=== PATIENT | female | born 1950 | race Caucasian/White ===

== ENCOUNTER 2017-07-04 15:52 | Inpatient (IN) | payer OTHER ==
[~2017-07-04] VITALS: Ht 154.9 cm; Wt 46.7 kg
[2017-07-04 15:52] VITALS: BP 203/75
[~2017-07-04 15:52] MED LIST: ALDACTONE25 MG PO; AUGMENTIN 500-1 EACH PO; CARISOPRODOL 3350 MG PO; CARISOPRODOL PO; KEPPRA 500 MG500 MG PO; LOSARTAN POTASS25 MG PO; MECLIZINE 25 MG25 M1; MECLIZINE HCL25 MG PO; MINOCIN100 MG PO; MS CONTIN 100100 MG PO; MS CONTIN15 MG PO; NICOTINE TRANSD21 M1 TRANSDERM; OXYCONTIN10 M1 PO; POTASSIUM20 PO; PREDNISONE 10 M10 MG PO; PROTONIX40 M1 PO; REQUIP 1 MG TABL1 M1 PO; ROXICODONE30 MG PO; VALIUM10 MG PO
[2017-07-04] MEDS ORDERED: CIPRO500 MG PO (16:00)
[2017-07-04 16:55] LABS: HEMATOCRIT 51.6 % (37.0-47.0); HEMOGLOBIN 16.7 gm/dL (12.0-15.0); MCH 30.6 pg (26.0-34.0); MCHC 32.4 g/dL (28.0-37.0); MCV 94.3 fL (80.0-100.0); MPV 9.7 fl. (7.2-11.1); NUCLEATED RBCS 0 /100WBC; PLATELET COUNT* 220 thou/uL (150-400); RBC 5.48 mil/uL (4.20-5.00); RDW-CV 14.5 % (10.5-14.5); WBC 11.7 thou/uL (4.0-11.0)
[2017-07-04 17:03] LABS: ANION GAP 13 mmol/L (7-16); BUN 11 mg/dL (7-18); CALCIUM 9.4 mg/dL (8.5-10.1); CHLORIDE 95 mmol/L (98-107); CO2 27 mmol/L (21-32); CREATININE 0.8 mg/dL (0.6-1.3); GLUCOSE 159 mg/dL (70-99); POTASSIUM 3.1 mmol/L (3.5-5.1); SODIUM 135 mmol/L (136-145)
[2017-07-04 17:13] LABS: ABSOLUTE LYMPHOCYTES 1.8 thou/uL (0.8-5.3); ABSOLUTE MONOCYTES 0.2 thou/uL (0.0-1.2); ABSOLUTE NEUTROPHILS 9.7 thou/uL (1.6-8.1); PLATELET ESTIMATE ADEQUATE
[2017-07-04 17:14] LABS: ALBUMIN 4.1 g/dL (3.4-5.0); ALKALINE PHOSPHATASE 159 U/L (46-116); NT-PRO BRAIN NAT PEPTIDE 5993 pg/mL (<300); SGOT 26 U/L (15-37); SGPT 18 U/L (30-65); TOTAL BILIRUBIN 0.9 mg/dL (<0.1-1.0); TOTAL PROTEIN 7.8 g/dL (6.4-8.2); TROPONIN-I LEVEL <0.06 ng/mL (<0.06)
[2017-07-04 17:18] LABS: URINE BILIRUBIN NEGATIVE (Negative); URINE BLOOD 2+ (Negative); URINE CLARITY CLEAR; URINE COLOR YELLOW; URINE GLUCOSE-RANDOM NEGATIVE (Negative); URINE KETONES NEGATIVE (Negative); URINE LEUKOCYTES-REFLEX NEGATIVE (Negative); URINE NITRITE-REFLEX NEGATIVE (Negative); URINE PROTEIN 2+ (Negative); URINE UROBILINOGEN 0.2 E.U./dl (0.2-1.0)
[2017-07-04 17:27] LABS: SQUAMOUS >10 Many /LPF (0-3)
[2017-07-04 17:28] LABS: BACTERIA-REFLEX 1-9 Few /HPF (None Seen); CRYSTALS None Seen /LPF (None Seen); HYALINE CASTS 0-3 Few /LPF (None Seen); MUCUS None Seen strn/LPF (None Seen); URINE RBC 3-10 Few /HPF (0-2); URINE WBC-REFLEX 0-5 Rare /HPF (0-5)
[2017-07-04] MEDS ORDERED: TOPROL XL25 MG PO (18:01)
[2017-07-04 20:19] LABS: INFLUENZA A ANTIGEN None Detected (None Detect); INFLUENZA B ANTIGEN None Detected (None Detect)
[2017-07-04 21:02] VITALS: BP 188/78; BP 202/80
[2017-07-05 03:38] VITALS: BP 178/85
[2017-07-05 05:18] LABS: HEMATOCRIT 51.7 % (37.0-47.0); HEMOGLOBIN 17.6 gm/dL (12.0-15.0); MCH 29.7 pg (26.0-34.0); MCHC 34.1 g/dL (28.0-37.0); MPV 8.5 fl. (7.2-11.1); RBC 5.94 mil/uL (4.20-5.00); WBC 15.8 thou/uL (4.0-11.0)
[2017-07-05 05:24] LABS: MCV 87.1 fL (80.0-100.0)
[2017-07-05 05:48] LABS: ALBUMIN 4.2 g/dL (3.4-5.0); CALCIUM 9.5 mg/dL (8.5-10.1); TOTAL BILIRUBIN 0.8 mg/dL (<0.1-1.0)
[2017-07-05 05:49] LABS: POTASSIUM 4.8 mmol/L (3.5-5.1)
[2017-07-05 10:30] VITALS: BP 186/84
[2017-07-05 14:44] VITALS: BP 159/83
--- NOTE | 2017-07-05 15:16 | 2DMMODE ---
[place] [address] 2 D/M-MODE ECHOCARDIOGRAM Name: MAULIK HIRSCH Room: [address] ADM IN [facility]#: [id number] Admission: 07/04/17 Attend Phys: Mirella Griffiths Discharge: Date of : 54 Date of Service: 07/05/17 1516 Report #: [id number] THIS REPORT FOR: //name// APPROVED REPORT Study performed: 07/05/2017 11:19:26 EXAM: Comprehensive 2D, Doppler, and color-flow Echocardiogram Patient Location: In-Patient Room #: [facility] Status: routine BSA: 1.48 HR: 84 bpm BP: 178/85 mmHg Rhythm: NSR Other Information Study Quality: Good Indications Congestive Heart Failure COPD Dyspnea Lung CA 2D Dimensions LVEF(%): 26.64 (>50%) IVSd: 12.42 (7-11mm) LVOT Diam: 16.99 (18-24mm) LVDd: 34.15 mm PWd: 10.28 (7-11mm) LVDs: 30.06 (25-40mm) Aortic Root: 27.72 mm Tello's LVEF: 26.64 % Volumes Left Atrial Volume (Systole) LA ESV Index: 15.30 mL/m2 Aortic Valve AoV Peak Robbin.: 1.71 m/s AO Peak Gr.: 11.71 mmHg LVOT Max P.56 mmHg AO Mean Gr.: 5.60 mmHg LVOT Mean P.68 mmHg LVOT Max V: 0.94 m/s AO V2 VTI: 21.51 cm LVOT Mean V: 0.59 m/s MICHAEL (VTI): 1.66 cm2 LVOT V1 VTI: 15.79 [place] [address] 2 D/M-MODE ECHOCARDIOGRAM Name: MAULIK HIRSCH Room: [address] IN ..#: [id number] Admission: 07/04/17 Attend Phys: Mirella Griffiths Discharge: Date of : 54 Date of Service: 07/05/17 1516 Report #: [id number] AI [place]: 3.45 m/s2 AI PHT: 394.57 ms TDI Medial E' Robbin.: 0.04 m/s Lateral E' Robbin.: 0.06 m/s Left Ventricle The left ventricle is normal size. There is normal LV segmental wall motion. There is normal left ventricular wall thickness. Left ventricular systolic function is mildly decreased. LVEF is 45-50%. The left ventricular diastolic function is normal. Right Ventricle The right ventricle is normal size. The right ventricular systolic function is normal. Pacemaker lead is present in the right ventricle. Atria The left atrium size is normal. The right atrium size is normal. Aortic Valve Mild aortic valve sclerosis. Moderate aortic regurgitation. Mild aortic stenosis. Mitral Valve The mitral valve is normal in structure. There is no mitral valve regurgitation noted. No evidence of mitral valve stenosis. Tricuspid Valve The tricuspid valve is normal in structure. There is no tricuspid valve regurgitation noted. Pulmonic Valve The pulmonary valve is normal in structure. There is no pulmonic valvular regurgitation. Great Vessels The aortic root is normal in size. IVC is normal in size and collapses with >50% inspiration Pericardium There is no pericardial effusion. <Conclusion> The left ventricle [place] [address] 2 D/M-MODE ECHOCARDIOGRAM Name: MAULIK HIRSCH Room: [address] IN .R.#: [id number] Admission: 07/04/17 Attend Phys: Mirella Griffiths Discharge: Date of : 54 Date of Service: 07/05/17 1516 Report #: [id number] There is normal left ventricular wall thickness. Left ventricular systolic function is mildly decreased. LVEF is 45-50%. The left ventricular diastolic function is normal. Mild aortic valve sclerosis. Moderate aortic regurgitation. Mild aortic stenosis. Pacemaker lead is present in the right ventricle. <ELECTRONICALLY SIGNED> By: Jorge Mcclelland MD, FACC 07/05/17 1516 1516 1516 Jorge Mcclelland MD, FAC /INF
--- NOTE | 2017-07-05 16:35 | EKG ---
[place] [address] ELECTROCARDIOGRAM REPORT Name: MAULIK HIRSCH Room: [address] ADM IN M.R.#: [id number] Admission: 07/04/17 Attend Phys: Ro Vital Discharge: Date of : 54 Report #: [id number] THIS REPORT FOR: //name// [facility] ED Test Date: 2017-07-04 Test Time: 16:02:44 Pat Name: MAULIK HIRSCH Department: Room: [facility] Gender: F Facility Engineer: UNKNOWN : 1950 Requested By: Nisa Mir Order Number: [id number] MD: Floyd Thomas Measurements Intervals [place] Rate: 73 P: 52 NH: 212 QRS: 55 QRSD: 88 T: 78 QT: 470 QTc: 518 Interpretive Statements Sinus rhythm Borderline prolonged NH interval Consider anterior infarct Nonspecific T abnormalities, lateral leads Prolonged QT interval Baseline wander in lead(s) I,III,aVL,V4 Compared to ECG 03/30/2017 13:35:22 Prolonged QT interval now present Electronically Signed On 07-05-2017 16:34:46 ARSON AND BOMB INVESTIGATOR by Floyd Thomas [email or web address] <ELECTRONICALLY SIGNED> By: Floyd Thomas MD, FAC 07/05/17 1634 1602 1602 Floyd Thomas MD, FAC /EPI
--- NOTE | 2017-07-05 16:46 | EKG ---
[place] [address] ELECTROCARDIOGRAM REPORT Name: MAULIK HIRSCH Room: [address] ADM IN M.R.#: [id number] Admission: 07/04/17 Attend Phys: Ro Vital Discharge: Date of : 54 Report #: [id number] THIS REPORT FOR: //name// [facility] Test Date: 2017-07-05 Test Time: 02:52:46 Pat Name: MAULIK HIRSCH Department: Room: [address] Gender: F Immigration Inspector: Sylvain RODRIGUEZ : 1950 Requested By: Robe Agrawal Order Number: [id number] Sarah MD: Floyd Thomas Measurements Intervals [place] Rate: 84 P: 66 CT: 171 QRS: 68 QRSD: 79 T: 79 QT: 434 QTc: 514 Interpretive Statements Sinus rhythm Biatrial enlargement Consider anterior infarct Prolonged QT interval Electronically Signed On 07-05-2017 16:46:22 JANITOR by Floyd Thomas [email or web address] <ELECTRONICALLY SIGNED> By: Floyd Thomas MD, [facility] 07/05/17 1646 D: 01/251 1 Floyd Thomas MD, FACC /EPI
[2017-07-05 19:28] VITALS: BP 150/78
[2017-07-05 23:32] LABS: BE 2.8 mmol/L (-2 to +3); HCO3 26.8 mmol/L (22.0-26.0); PCO2 39.2 mmHg (35.0-45.0); pH 7.452 (7.340-7.450)
[2017-07-06 00:24] VITALS: BP 145/80
[2017-07-06 04:36] LABS: HEMATOCRIT 50.6 % (37.0-47.0); HEMOGLOBIN 17.4 gm/dL (12.0-15.0); MCH 30.3 pg (26.0-34.0); MCHC 34.5 g/dL (28.0-37.0); MCV 88.1 fL (80.0-100.0); MPV 8.8 fl. (7.2-11.1); RBC 5.75 mil/uL (4.20-5.00); RDW-CV 14.2 % (10.5-14.5)
[2017-07-06 04:42] VITALS: BP 145/77
[2017-07-06 04:43] LABS: BE 1.4 mmol/L (-2 to +3); HCO3 23.8 mmol/L (22.0-26.0); PCO2 32.2 mmHg (35.0-45.0); pH 7.486 (7.340-7.450)
[2017-07-06 04:45] LABS: PO2 55.4 mmHg (75.0-100.0)
[2017-07-06 04:54] LABS: ALBUMIN 3.8 g/dL (3.4-5.0); CALCIUM 9.4 mg/dL (8.5-10.1); CREATININE 1.4 mg/dL (0.6-1.3); POTASSIUM 4.4 mmol/L (3.5-5.1); TOTAL BILIRUBIN 0.7 mg/dL (<0.1-1.0); TOTAL PROTEIN 7.3 g/dL (6.4-8.2)
[2017-07-06 07:37] VITALS: BP 168/82
--- NOTE | 2017-07-06 11:49 | EKG ---
[place] [address] ELECTROCARDIOGRAM REPORT Name: MAULIK HIRSCH Room: [address] ADM IN M.R.#: [id number] Admission: 07/04/17 Attend Phys: Ro Vital Discharge: Date of : 54 Report #: [id number] THIS REPORT FOR: //name// [facility] Test Date: 2017-07-05 Test Time: 23:14:30 Pat Name: MAULIK HORTAETZ Department: Room: [address] Gender: F Agricultural Equipment Sales Manager: Ro LEDEZMA : 1950 Requested By: Mirella Griffiths Order Number: [id number] Reading MD: Floyd Thomas Measurements Intervals [place] Rate: 99 P: 63 MN: 161 QRS: 64 QRSD: 76 T: 42 QT: 365 QTc: 469 Interpretive Statements Sinus rhythm Right atrial enlargement Consider left ventricular hypertrophy Baseline wander in lead(s) V1,V3 Compared to ECG 07/05/2017 02:52:46 Myocardial infarct finding no longer present Prolonged QT interval no longer present Electronically Signed On 07-06-2017 11:49:38 PHARMACY SERVICES DIRECTOR by Floyd Thomas [email or web address] <ELECTRONICALLY SIGNED> By: Floyd Thomas MD, [facility] 07/06/17 1149 2314 2314 Floyd Thomas MD, [facility] /EPI
--- NOTE | 2017-07-06 11:50 | EKG ---
[place] [address] ELECTROCARDIOGRAM REPORT Name: MAULIK HIRSCH Room: [address] ADM IN M.R.#: [id number] Admission: 07/04/17 Attend Phys: Ro Vital Discharge: Date of : 54 Report #: [id number] THIS REPORT FOR: //name// [facility] Test Date: 2017-07-05 Test Time: 23:17:00 Pat Name: MAULIK HORTAETZ Department: Room: [address] Gender: F Leather Softener: Ro LEDEZMA : 1950 Requested By: Robe Agrawal Order Number: [id number] Sarah MD: Floyd Thomas Measurements Intervals [place] Rate: 94 P: 60 [place]: 160 QRS: 59 QRSD: 77 T: 63 QT: 376 QTc: 471 Interpretive Statements Sinus rhythm Right atrial enlargement Consider left ventricular hypertrophy Compared to ECG 07/05/2017 02:52:46 Prolonged QT interval no longer present Electronically Signed On 07-06-2017 11:50:13 HEAT AND FROST INSULATOR by Floyd Thomas [email or web address] <ELECTRONICALLY SIGNED> By: Floyd Thomas MD, FACNaseem 07/06/17 1150 2317 2317 Floyd Thomas MD, [facility] /EPI
--- NOTE | 2017-07-06 11:57 | EKG ---
[place] [address] ELECTROCARDIOGRAM REPORT Name: MAULIK HIRSCH Room: [address] ADM IN M.R.#: [id number] Admission: 07/04/17 Attend Phys: Ro Vital Discharge: Date of : 54 Report #: [id number] THIS REPORT FOR: //name// [facility] Test Date: 2017-07-06 Test Time: 08:17:49 Pat Name: MAULIK HIRSCH Department: Room: [address] Gender: F Structural Welder: : 1950 Requested By: Robe Agrawal Order Number: [id number] Sarah MD: Floyd Thomas Measurements Intervals [place] Rate: 96 P: 58 OR: 187 QRS: 53 QRSD: 79 T: 44 QT: 386 QTc: 488 Interpretive Statements Sinus rhythm Right atrial enlargement Consider left ventricular hypertrophy Borderline prolonged QT interval Compared to ECG 07/05/2017 02:52:46 no change Electronically Signed On 07-06-2017 11:56:56 FLOAT NURSE by Floyd Thomas [email or web address] <ELECTRONICALLY SIGNED> By: Floyd Thomas MD, [facility] 07/06/17 1156 6 6 Floyd Thomas MD, [facility] /EPI
[2017-07-06 12:30] VITALS: BP 160/79
[2017-07-06 14:57] VITALS: BP 161/78
[2017-07-06 16:00] VITALS: BP 171/85
[2017-07-07] VITALS: BP 146/59
[2017-07-07 04:00] VITALS: BP 154/88
[2017-07-07 04:57] LABS: BE -0.6 mmol/L (-2 to +3); HCO3 22.8 mmol/L (22.0-26.0); PCO2 34.7 mmHg (35.0-45.0); pH 7.436 (7.340-7.450)
[2017-07-07 05:58] LABS: HEMATOCRIT 49.1 % (37.0-47.0); HEMOGLOBIN 16.4 gm/dL (12.0-15.0); MCH 30.3 pg (26.0-34.0); MCHC 33.5 g/dL (28.0-37.0); MCV 90.6 fL (80.0-100.0); MPV 9.1 fl. (7.2-11.1); NUCLEATED RBCS 0 /100WBC; PLATELET COUNT* 229 thou/uL (150-400); RBC 5.42 mil/uL (4.20-5.00); RDW-CV 14.1 % (10.5-14.5); WBC 18.5 thou/uL (4.0-11.0)
[2017-07-07 06:18] LABS: ALBUMIN 3.8 g/dL (3.4-5.0); CALCIUM 9.6 mg/dL (8.5-10.1); CREATININE 1.5 mg/dL (0.6-1.3); POTASSIUM 4.8 mmol/L (3.5-5.1); TOTAL BILIRUBIN 0.5 mg/dL (<0.1-1.0); TOTAL PROTEIN 6.9 g/dL (6.4-8.2)
[2017-07-07 06:26] LABS: ABSOLUTE LYMPHOCYTES 0.7 thou/uL (0.8-5.3); ABSOLUTE MONOCYTES 0.7 thou/uL (0.0-1.2); ANISOCYTOSIS 1+; PLATELET ESTIMATE ADEQUATE; POIKILOCYTOSIS 1+
[2017-07-07 08:00] VITALS: BP 177/80
[2017-07-07 12:36] VITALS: BP 170/86
--- NOTE | 2017-07-07 16:38 | CON ---
[address] [address] CONSULTATION Name: MAULIK HIRSCH Room: [address] IN M.R.#: [id number] Admission: 07/04/17 Attend Phys: Ro Vital Discharge: Date of : 54 Report #: [id number] THIS REPORT FOR: //name// CC: Parker Griffiths DATE OF SERVICE: 07/06/2017 TYPE OF REPORT: Cardiology consultation. PRIMARY CARE PHYSICIAN: Dr. Parker Grajeda. HISTORY OF PRESENT ILLNESS: The patient is a 67-year-old white female who I was asked to see in the hospital today after she complained of being short of breath. The patient has an extensive past medical history. She previously was diagnosed with long QT syndrome. She apparently had normal coronary arteries in the past. She appears followed by Dr. Conteh. She had a history of syncope and eventually underwent implantation of defibrillator by Dr. Hernandez at [facility]. The patient recently has been followed by my partner, Dr. Buchanan. She was last admitted here to [place] in March 2017 at which time she had fallen and had an episode of atrial fibrillation. She had fallen with an elevated troponin. Because of her negative Cardiolite last year, it was decided not to proceed with cardiac catheterization. The patient was seen by my partner, Dr. Buchanan in April 2017. The patient was doing well at that time. The patient presented to the Emergency Room 2 days ago with shortness of breath and weakness. She denied any recent chest pain, cough, fever or increasing edema. She denied any palpitations. She was admitted to a monitored bed. I was asked to see her for further evaluation and treatment. PAST MEDICAL HISTORY: Otherwise significant for cholecystectomy, hysterectomy, 5 back surgeries and shoulder surgery. She had previous resection of the lung cancer using CyberKnife at [facility]. She has a history of hypertension. CURRENT MEDICATIONS: Consists of metoprolol and Requip. She is no longer on losartan. ALLERGIES: She has a previous intolerance to METHADONE. FAMILY HISTORY: She is adopted. SOCIAL HISTORY: She is . She and her live in [place]. 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 Smokes half pack of cigarettes a day. No alcohol abuse. REVIEW OF SYSTEMS: She has had no history of the stomach [place] [address] CONSULTATION Name: MAULIK HIRSCH Room: [address]#: [id number] Admission: 07/04/17 Attend Phys: Ro Vital Discharge: Date of : 54 Report #: [id number] had a TIA in the past affecting her speech. She has COPD, uses inhaler. No history of liver disease, kidney disease or chronic skin condition. PHYSICAL EXAMINATION: GENERAL: Revealed a frail appearing white female lying in bed. She appeared in no acute distress. VITAL SIGNS: She has had a blood pressure of 160/80, pulse 90 and she is afebrile. HEENT: She was anicteric. Conjunctivae pink. Mucous members are dry. NECK: Veins do not appear distended. CHEST: No coarse breath sounds. CARDIAC: Regular rate and rhythm. ABDOMEN: Soft. EXTREMITIES: Had trace edema. Dorsalis pedis pulse 1+ bilaterally. SKIN: Cool and dry. NEUROLOGICAL: Nonfocal. PSYCHIATRIC: Mood was depressed. RADIOLOGICAL DATA: Her ECG on admission 2 days ago showed a sinus rhythm with no ST or T-wave change. Her workup, her last echocardiogram, which was done 2 days ago showed ejection fraction 45%. Mild aortic sclerosis, moderate aortic insufficiency and mild aortic stenosis. Her chest x-ray done on admission 2 days ago showed scarring, no pulmonary edema. VQ scan of the lungs showed low probability of pulmonary embolus. LABORATORY DATA: Her lab work consisted of sodium 133, BUN 35 and creatinine 1.4. Alkaline phosphatase 159. Troponin 0.06. Her white blood cell count 15.0 and hemoglobin 17.4. IMPRESSION AND RECOMMENDATIONS: 1. Cardiomyopathy. The patient has been on a beta edwina. I would consider resuming losartan. 2. History of long QT syndrome. The patient has a defibrillator in place. 3. Tobacco abuse. 4. History of lung cancer. 5. Chronic back pain. 6. History of atrial fibrillation, currently in sinus rhythm. 7. Chronic obstructive pulmonary disease. 8. Sleep apnea. <ELECTRONICALLY SIGNED> By: Floyd Thomas MD, [facility] 07/07/17 1638 1737 [id number] Thomas MD, FAC /nt
[2017-07-07 16:59] VITALS: BP 181/87
[2017-07-07 20:00] VITALS: BP 161/83
[2017-07-08] VITALS: BP 152/80
[2017-07-08 04:17] VITALS: BP 160/88
[2017-07-08 04:43] LABS: HEMOGLOBIN 16.1 gm/dL (12.0-15.0); MCH 30.2 pg (26.0-34.0); MCHC 33.6 g/dL (28.0-37.0); MCV 89.8 fL (80.0-100.0); MPV 9.4 fl. (7.2-11.1); RBC 5.34 mil/uL (4.20-5.00); RDW-CV 13.9 % (10.5-14.5); WBC 11.2 thou/uL (4.0-11.0)
[2017-07-08 05:11] LABS: CALCIUM 9.3 mg/dL (8.5-10.1); CREATININE 1.5 mg/dL (0.6-1.3); MAGNESIUM 1.8 mg/dL (1.8-2.4); POTASSIUM 4.4 mmol/L (3.5-5.1)
[2017-07-08 07:15] VITALS: BP 186/87
[2017-07-08 16:20] VITALS: BP 204/84
[2017-07-08 16:38] VITALS: BP 200/89
[2017-07-08 19:39] VITALS: BP 108/89
[2017-07-09 00:02] VITALS: BP 139/71
[2017-07-09 04:12] VITALS: BP 148/62
[2017-07-09 07:50] VITALS: BP 144/84
[2017-07-09 14:57] VITALS: BP 144/88
[2017-07-10] VITALS: BP 184/82
[2017-07-10 03:45] VITALS: BP 163/90
[2017-07-10 04:30] LABS: CALCIUM 8.9 mg/dL (8.5-10.1); CREATININE 1.2 mg/dL (0.6-1.3); POTASSIUM 4.4 mmol/L (3.5-5.1)
[2017-07-10 07:45] VITALS: BP 166/82
--- NOTE | 2017-07-10 09:31 | CON ---
[address] [address] CONSULTATION Name: MAULIK HIRSCH Room: [address] IN M.R.#: [id number] Admission: 07/04/17 Attend Phys: Ro Vital Discharge: Date of : 54 Report #: [id number] THIS REPORT FOR: //name// CC: Parker Griffiths REASON FOR CONSULTATION: Acute worsening respiratory failure. HISTORY OF PRESENT ILLNESS: The patient is a 67-year-old female patient who was admitted to the hospital on 07/02/2017 with chief complaint of shortness of breath of 3 weeks' duration. Apparently, her O2 saturation initially was on room air 94% and she was treated for pneumonia prior to hospitalization. She has history of lung cancer and COPD and no cardiac disease. She was admitted to the hospital due to COPD exacerbation and pneumonia with antibiotics; however, over the course of hospitalization, her oxygen needs have increased only, until last night she was on 15 liters oxygen. I did discuss with RN. The patient did not tolerate BiPAP and thus she was given Valium last night. When I saw her this morning, she is on 15 liters oxygen, although she looks comfortable, speaks in full sentences, but overall she looks chronically ill. Her ejection fraction during hospitalization was 45%, although there was no diastolic dysfunction. She had multiple sets of ABGs, the last sets of ABG, 7. and that was done on 60% FiO2 on the BiPAP. Her creatinine is 1.5. She reported that she feels better than last night. She has a cough, dry, not producing any sputum. She had a CT scan that will be discussed below. Also, she has history of lung cancer. ALLERGIES: ASPIRIN, METHADONE and SUMATRIPTAN. HOME MEDICATIONS PRIOR TO HOSPITALIZATION: ReQuip, oxycodone, diazepam, potassium supplement, ciprofloxacin, metoprolol. PAST MEDICAL HISTORY: COPD, previous history of pneumonia, CHF with cardiomyopathy, ejection fraction of 45%, aortic insufficiency. She has history of cardiac arrhythmia with atrial fibrillation, history of hypokalemia. She is status post pacemaker, defibrillator placement, history of tachycardia, history of syncopal episodes, fall and multiple CVAs in addition to lung cancer and seizures. PAST SURGICAL HISTORY: Includes tonsillectomy, laminectomy, C-sections, cholecystectomy and shoulder surgery. FAMILY HISTORY: Reviewed with the patient, noncontributory. SOCIAL HISTORY: Does not drink alcohol excessively, does not abuse drugs. However, [place] [address] CONSULTATION Name: MAULIK HIRSCH Room: [address]#: [id number] Admission: 07/04/17 Attend Phys: Ro Vital Discharge: Date of : 54 Report #: [id number] REVIEW OF SYSTEMS: She denied fever, chills, change in appetite. Overall her appetite is poor. She denied dysphagia, nasal congestion or discharge. She reports history of shortness of breath with occasional sputum production, although it is white in color. She denied any pain, change in bowel habits. The rest of the review system was negative. PHYSICAL EXAMINATION: VITAL SIGNS: She was on 15 liters oxygen with blood pressure 140/62, pulse rate of 100, temperature 36.4. GENERAL: Thin lady, awake, alert, on nonrebreather. She speaks in full sentences. HEENT: Head normocephalic, atraumatic. Pupils equal, reactive to light. Oral cavity: Dry mucous membrane. NECK: Supple. CHEST: Diminished air movement bilaterally, prolonged expiratory phase with occasional wheezes, some crackles at the left lung base. HEART: S1, S2. No murmur, no gallop. ABDOMEN: Benign, soft, lax, nontender, positive bowel sounds. EXTREMITIES: Lower extremity: No edema, no calf tenderness. MUSCULOSKELETAL: Normal on inspection. No deformities. LYMPHATICS: No palpable lymph nodes. PSYCHIATRIC: Mood and affect slightly anxious, seems to have good insight and judgment. Her chest x-ray initially showed left lower lobe infiltrates. She had a CT scan of the chest without contrast done last night that demonstrated atelectasis and pneumonia had resolved, but she has oval mass which is consistent with history of lung cancer she had in the past. Her ABGs as mentioned above, her creatinine is 1.5 with a , sodium 133. White blood cell count 11.2, hemoglobin 16.1, platelet of 198. Other CBC and BMP in the chart also was reviewed. Her influenza A and B screen were negative. 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 Calvert at [facility]. IMPRESSION: 1. Acute hypoxic respiratory failure. 2. Chronic obstructive pulmonary disease exacerbation. 3. Pneumonia. 4. History of lung cancer. The patient's initial V/Q scan upon hospitalization was low probability for PE. However, with the sudden deterioration in her oxygen, I would like to revisit evaluation. We will do Doppler ultrasound of lower extremities and we will do V/Q scan again. I agree with resuming IV steroids. I agree with the diuresis; [place] [address] CONSULTATION Name: MAULIK HIRSCH Room: [address] IN M.R.#: [id number] Admission: 07/04/17 Attend Phys: Ro Vital Discharge: Date of : 54 Report #: [id number] however, she must wean from further diuresis given her ejection fraction. She will be on scheduled nebulization treatments. Unfortunately, the patient does not tolerate BiPAP. She remains full code. Condition guarded, prognosis guarded. We will follow along with you. Thank you for the consult. <ELECTRONICALLY SIGNED> By: Cordell Reyes MD 07/10/17 0931 0949 1922Ddon Reyes MD /matt
[2017-07-10 12:07] VITALS: BP 134/78
[2017-07-10 17:00] VITALS: BP 152/77
[2017-07-10 19:48] VITALS: BP 144/75
[2017-07-11] VITALS: BP 154/80
[2017-07-11 03:45] VITALS: BP 129/73
[2017-07-11 05:00] LABS: HEMATOCRIT 47.7 % (37.0-47.0); HEMOGLOBIN 16.4 gm/dL (12.0-15.0); MCH 30.7 pg (26.0-34.0); MCHC 34.4 g/dL (28.0-37.0); MCV 89.2 fL (80.0-100.0); MPV 10.2 fl. (7.2-11.1); RBC 5.35 mil/uL (4.20-5.00); RDW-CV 13.6 % (10.5-14.5)
[2017-07-11 05:29] LABS: CALCIUM 8.4 mg/dL (8.5-10.1); CREATININE 1.2 mg/dL (0.6-1.3); MAGNESIUM 2.1 mg/dL (1.8-2.4); POTASSIUM 3.9 mmol/L (3.5-5.1)
[2017-07-11 08:40] VITALS: BP 150/77
[2017-07-11 12:45] LABS: APTT 25.1 Seconds (25.0-31.3); INR 1.2; PROTIME 11.3 Seconds (9.20-11.50)
[2017-07-11 16:00] VITALS: BP 139/80
[2017-07-11 20:30] VITALS: BP 141/84
[2017-07-11 23:37] VITALS: BP 151/77
[2017-07-12 04:00] VITALS: BP 167/86
[2017-07-12 05:00] LABS: HEMATOCRIT 49.8 % (37.0-47.0); HEMOGLOBIN 17.2 gm/dL (12.0-15.0); MCH 30.4 pg (26.0-34.0); MCHC 34.6 g/dL (28.0-37.0); MCV 87.8 fL (80.0-100.0); MPV 9.5 fl. (7.2-11.1); NUCLEATED RBCS 0 /100WBC; PLATELET COUNT* 124 thou/uL (150-400); RBC 5.68 mil/uL (4.20-5.00); WBC 18.6 thou/uL (4.0-11.0)
[2017-07-12 05:09] LABS: ALBUMIN 3.3 g/dL (3.4-5.0); CALCIUM 8.6 mg/dL (8.5-10.1); POTASSIUM 3.9 mmol/L (3.5-5.1); TOTAL BILIRUBIN 1.1 mg/dL (<0.1-1.0); TOTAL PROTEIN 5.9 g/dL (6.4-8.2)
[2017-07-12 06:11] LABS: ABSOLUTE LYMPHOCYTES 0.7 thou/uL (0.8-5.3); ABSOLUTE MONOCYTES 1.7 thou/uL (0.0-1.2); ABSOLUTE NEUTROPHILS 16.2 thou/uL (1.6-8.1); PLATELET ESTIMATE ADEQUATE
[2017-07-12 08:00] VITALS: BP 152/92
[2017-07-12 09:30] VITALS: BP 152/92
[2017-07-12 12:24] LABS: BE -0.7 mmol/L (-2 to +3); HCO3 21.2 mmol/L (22.0-26.0); PCO2 29.1 mmHg (35.0-45.0); PO2 60.3 mmHg (75.0-100.0)
[2017-07-12] MEDS ORDERED: DUONEB 2.5-0.5 M3 ML INH (13:51)
[2017-07-12] MEDS ORDERED: SPIRONOLACTONE25 M1 PO (13:53)
[2017-07-12] MEDS ORDERED: COZAAR 50 MG TA50 M2 PO (13:55)
[2017-07-12] MEDS ORDERED: PROTONIX40 M2 PO (13:57)
[2017-07-12] MEDS ORDERED: ULTRAM 50MG TAB50 MG PO (13:58)
[2017-07-12] MEDS ORDERED: PREDNISONE 10 M10 M1 PO (14:06)
[2017-07-12] MEDS ORDERED: TYLENOL325 MG PO (14:09)
== END 2017-07-12 14:44 | disposition home health service (06) | DRG 871 ==
LOC: M.ERS 15:52 → M.3W 19:41 → M.TBA-ER 19:41 → M.3W 21:26
PROVIDERS: Family Medicine; Internal Medicine; Nurse Practitioner Family; ADMIT Internal Medicine
DX: A41.9 Sepsis, unspecified organism (principal); I50.43 Acute on chronic combined systolic (congestive) and diastolic (congestive) heart failure; J96.01 Acute respiratory failure with hypoxia; J15.9 Unspecified bacterial pneumonia; G93.41 Metabolic encephalopathy; J44.1 Chronic obstructive pulmonary disease with (acute) exacerbation; C34.90 Malignant neoplasm of unspecified part of unspecified bronchus or lung; I42.9 Cardiomyopathy, unspecified; J44.0 Chronic obstructive pulmonary disease with (acute) lower respiratory infection; N39.0 Urinary tract infection, site not specified; E87.3 Alkalosis; N17.9 Acute kidney failure, unspecified; M79.606 Pain in leg, unspecified; F41.9 Anxiety disorder, unspecified; E87.8 Other disorders of electrolyte and fluid balance, not elsewhere classified; E87.6 Hypokalemia; N18.9 Chronic kidney disease, unspecified; F17.210 Nicotine dependence, cigarettes, uncomplicated; G89.29 Other chronic pain; M54.9 Dorsalgia, unspecified; I48.91 Unspecified atrial fibrillation; G47.30 Sleep apnea, unspecified; Z90.49 Acquired absence of other specified parts of digestive tract; Z95.0 Presence of cardiac pacemaker; Z79.899 Other long term (current) drug therapy; Z79.82 Long term (current) use of aspirin; Z90.710 Acquired absence of both cervix and uterus; Z88.6 Allergy status to analgesic agent; Z88.8 Allergy status to other drugs, medicaments and biological substances

== ENCOUNTER 2017-07-16 13:03 | Inpatient (IN) | payer OTHER ==
[~2017-07-16] VITALS: Ht 152.4 cm; Wt 47.6 kg
[2017-07-16] VITALS (12 sets, daily range): BP systolic 129–218; BP diastolic 67–89
[~2017-07-16 13:03] MED LIST changes: +CIPRO500 MG PO; +COZAAR 50 MG TA50 M2 PO; +DUONEB 2.5-0.5 M3 ML INH; +PREDNISONE 10 M10 M1 PO; +PROTONIX40 M2 PO; +SPIRONOLACTONE25 M1 PO; +TOPROL XL25 MG PO; +TYLENOL325 MG PO; +ULTRAM 50MG TAB50 MG PO
[2017-07-16 13:40] LABS: HCO3 16.7 mmol/L (22.0-26.0); PCO2 24.6 mmHg (35.0-45.0); PO2 67.3 mmHg (75.0-100.0); pH 7.449 (7.340-7.450)
--- NOTE | 2017-07-16 14:00 | NUR ---
RT IJ CENTAL LINE PLACED BY DR KENNEY, VARIFIED BY X-RAY.
[2017-07-16 14:11] LABS: HEMATOCRIT 47.9 % (37.0-47.0); MCH 30.2 pg (26.0-34.0); MCHC 33.3 g/dL (28.0-37.0); MCV 90.7 fL (80.0-100.0); MPV 9.9 fl. (7.2-11.1); NUCLEATED RBCS 0 /100WBC; PLATELET COUNT* 190 thou/uL (150-400); RBC 5.28 mil/uL (4.20-5.00); WBC 21.8 thou/uL (4.0-11.0)
--- NOTE | 2017-07-16 14:12 | NUR ---
SUCESSFUL INTUBATION 7.0 TUBE, 22 AT THE GUM. POSITIVE COLOR CHANGE. OG PLACED AND SECURED. BOTH VERIFIED BY XRAY.
[2017-07-16 14:20] LABS: ANION GAP 8 mmol/L (7-16); BUN 30 mg/dL (7-18); CALCIUM 8.7 mg/dL (8.5-10.1); CHLORIDE 100 mmol/L (98-107); CO2 26 mmol/L (21-32); CREATININE 1.1 mg/dL (0.6-1.3); GLUCOSE 181 mg/dL (70-99); POTASSIUM 4.4 mmol/L (3.5-5.1); SODIUM 134 mmol/L (136-145)
[2017-07-16 14:31] LABS: ALBUMIN 3.1 g/dL (3.4-5.0); ALKALINE PHOSPHATASE 112 U/L (46-116); NT-PRO BRAIN NAT PEPTIDE 628 pg/mL (<300); SGOT 16 U/L (15-37); SGPT 16 U/L (30-65); TOTAL BILIRUBIN 0.6 mg/dL (<0.1-1.0); TOTAL PROTEIN 6.5 g/dL (6.4-8.2); TROPONIN-I LEVEL <0.06 ng/mL (<0.06)
[2017-07-16 14:37] LABS: ABSOLUTE MONOCYTES 0.4 thou/uL (0.0-1.2); ABSOLUTE NEUTROPHILS 19.4 thou/uL (1.6-8.1); ATYPICAL LYMPHS 1 %; PLATELET ESTIMATE ADEQUATE
[2017-07-16 14:44] LABS: ACETAMINOPHEN < 2 ug/mL (10-30)
[2017-07-16 14:48] LABS: URINE BILIRUBIN NEGATIVE (Negative); URINE BLOOD TRACE (Negative); URINE CLARITY CLEAR; URINE COLOR YELLOW; URINE GLUCOSE-RANDOM NEGATIVE (Negative); URINE KETONES NEGATIVE (Negative); URINE LEUKOCYTES NEGATIVE (Negative); URINE NITRITE NEGATIVE (Negative); URINE PROTEIN TRACE (Negative); URINE UROBILINOGEN 0.2 E.U./dl (0.2-1.0)
[2017-07-16 15:02] LABS: AMP/METHAMP Negative (Negative); BARBITURATES Negative (Negative); BENZODIAZEPINES POSITIVE (Negative); COCAINE Negative (Negative); METHADONE Negative (Negative); OPIATES POSITIVE (Negative); PCP Negative (Negative); THC Negative (Negative)
[2017-07-16 15:06] LABS: INFLUENZA A ANTIGEN None Detected (None Detect); INFLUENZA B ANTIGEN None Detected (None Detect)
--- NOTE | 2017-07-16 18:25 | NUR ---
PATIENT ADMITTED TO THE ICU AT 1505. ELECTIVE INTUBATION IN THE ER, PATIENT IS CLAUSTROPHOBIC AND REQUESTED TO BE INTUBATED OVER WEARING A BIPAP. UPON ARRIVING ON VENT (AC 16, FIO2 30%, TV 450, PEEP 5) SEDATED ON PROPOFOL AT 10 MCG/KG/MIN. FIO2 TITRATED UP BY RT THIS SHIFT TO 50% R/T DESATURATION. TRACING NSR TO SINUS TACH. HYPERTENSIVE, BUT BLOOD PRESSURES HAD IMPROVED. HYPOTHERMIC UPON ARRIVING, 4 WARM BLANKETS ON PATIENT TO INCREASE TEMP TO 97.2. PROPOFOL INCREASED TO 20 MCG/KG/MIN (5.4 ML/HR) AFTER PATIENT STARTED TO WAKE UP AFTER INTUBATION MEDICATIONS WORE OFF. BILATERAL SOFT WRIST RESTRAINTS IN PLACE. (ALIYAH) CALLED AND UPDATED ON PATIENT'S STATUS, STATED HE IS NOT FEELING WELL AT HOME AND UNABLE TO COME TO HOSPITAL. STATED HE WOULD CONTINUE TO CALL AND CHECK IN ON PATIENT. PATIENT WAS RECENTLY HERE FOR PNEUMONIA WITH NONCOMPLIANT BEHAVIORS AND REFUSED SNF PLACEMENT. WEARS O2 AT HOME, UNKNOWN AMOUNT. CONCERNS THAT PATIENT HAS BEEN OVERUSING BENZOS AND NARCOTICS AT HOME ON PREVIOUS ADMISSIONS. GOALS ARE TO MAINTAIN AIRWAY, IMPROVE OXYGENATION, MAINTAIN HEMODNYNAMIC STABILITY AND VITAL SIGNS, AND MAINTAIN SKIN INTEGRITY.
--- NOTE | 2017-07-16 23:06 | NUR ---
ASSUMED CARE OF PT @ 1900; RECEIVED REPORT PER GERALD HINOJOSA; SEE REASSESSMENT FOR CHARTING; PT RECEIVED SEDATION VACATION; RESPONDED TO YES OR NO QUESTIONS WITH NODS; FOLLOWED COMMANDS; MONITOR TRACING SR; PT REPOSTIONED, WILL CONTINUE TO MONITOR FREQUENTLY.
[2017-07-17] VITALS (18 sets, daily range): BP systolic 96–153; BP diastolic 53–77
[2017-07-17 05:27] LABS: HEMATOCRIT 39.1 % (37.0-47.0); MCH 30.9 pg (26.0-34.0); MCHC 34.8 g/dL (28.0-37.0); MCV 88.8 fL (80.0-100.0); MPV 9.9 fl. (7.2-11.1); RBC 4.4 mil/uL (4.20-5.00); RDW-CV 14.2 % (10.5-14.5); WBC 15.7 thou/uL (4.0-11.0)
[2017-07-17 06:09] LABS: HEMOGLOBIN 13.6 gm/dL (12.0-15.0)
[2017-07-17 06:10] LABS: ALBUMIN 2.3 g/dL (3.4-5.0); ALKALINE PHOSPHATASE 87 U/L (46-116); ANION GAP 10 mmol/L (7-16); BUN 21 mg/dL (7-18); CALCIUM 7.9 mg/dL (8.5-10.1); CHLORIDE 105 mmol/L (98-107); CO2 22 mmol/L (21-32); CREATININE 0.9 mg/dL (0.6-1.3); GLUCOSE 122 mg/dL (70-99); MAGNESIUM 1.7 mg/dL (1.8-2.4); POTASSIUM 4.3 mmol/L (3.5-5.1); SGOT 13 U/L (15-37); SGPT 12 U/L (30-65); SODIUM 137 mmol/L (136-145); TOTAL BILIRUBIN 0.5 mg/dL (<0.1-1.0); TOTAL PROTEIN 5.1 g/dL (6.4-8.2); TROPONIN-I LEVEL <0.06 ng/mL (<0.06)
--- NOTE | 2017-07-17 06:12 | NUR ---
PT PROGRESSING TOWARDS GOAL, GOAL TO MAINTAIN O2 SAT COMPLETED AND DECREASED FIO2 ON VENT TO 40%; ORAL CARE AND TURN COMPLETED Q 2 HOURS; GOAL TO MAINTAIN SBP LESS THAN 150 COMPLETED; PT CURRENTLY RESTING ON VENT, EYES CLOSED; WILL RESPOND TO VOICE AND FOLLOW COMMANDS; CALL LIGHT WITH IN REACH; WILL CONTINUE TO IMPLEMENT PLAN OF CARE.
--- NOTE | 2017-07-17 09:20 | NUR ---
RECEIVED REPORT FROM GERALD GRECO. ASSESSMENT CHARTED. AFEBRILE. INTUBATED AMD SEDATED. TTT TOMORROW AM. PROPOFOL GTT AND NS INFUSING.
--- NOTE | 2017-07-17 11:49 | EKG ---
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: Eric ALFRED : 1950 Requested By: Andreina Holt Order Number: [id number] Reading MD: Pako Inman Measurements Intervals [place] Rate: 104 P: 57 DE: 175 QRS: 41 QRSD: 79 T: 92 QT: 339 QTc: 446 Interpretive Statements Sinus tachycardia Right atrial enlargement RSR' in V1 or V2, probably normal variant Consider left ventricular hypertrophy Probable inferior infarct, old Lateral leads are also involved Baseline wander in lead(s) V6 Compared to ECG 07/06/2017 08:17:49 RSR' in V1 or V2 now present Myocardial infarct finding now present Sinus rhythm no longer present Electronically Signed On 07-17-2017 11:49:10 COLLECTION SUPPORT SPECIALIST by Pako Inman [email or web address] <ELECTRONICALLY SIGNED> By: Pako Inman MD, [facility] 07/17/17 1149 133 1332 Pako Inman MD, [facility] /EPI
[2017-07-17 15:34] LABS: HCO3 17.2 mmol/L (22.0-26.0); PCO2 30.7 mmHg (35.0-45.0); pH 7.365 (7.340-7.450)
[2017-07-17 15:37] LABS: PO2 126.2 mmHg (75.0-100.0)
[2017-07-18] VITALS (14 sets, daily range): BP systolic 107–159; BP diastolic 57–79
--- NOTE | 2017-07-18 10:42 | NUR ---
Nutrition: Recommend TF of Fibersource HN @ 40mL/hr with current propofol rate. Once Propofol is tapered, please increase TF to goal rate of 50mL/hr. See RD Assessment form for details.
--- NOTE | 2017-07-18 11:05 | NUR ---
RECEIVED REFERRAL FOR PALLIATIVE CARE CONSULT. NO FAMILY HERE AT THIS TIME. WILL CONTACT FAMILY AND DISCUSS PLAN OF CARE WITH THEM.
--- NOTE | 2017-07-18 11:35 | CON ---
[address] [address] CONSULTATION Name: MAULIK HIRSCH Room: [address] IN .R.#: [id number] Admission: 07/16/17 Attend Phys: Costa Holland, Discharge: Date of : 54 Report #: [id number] THIS REPORT FOR: //name// CC: KARON physician/PCP Costa Holland DATE OF SERVICE: 07/18/2017 ATTENDING PHYSICIAN: Costa Holland MD REASON FOR CONSULTATION: Respiratory failure complicated by sepsis and pneumonitis. HISTORY OF PRESENT ILLNESS: Chart reviewed, patient examined. This 67-year-old female with a known history of chronic obstructive pulmonary disease, has cardiomyopathy as well who was readmitted to the hospital with progressive weakness, had fallen. She is normally on supplemental oxygen at home due to her chronic obstructive pulmonary disease. She did require emergent intubation. She is seen in the Intensive Care Unit and has been started on broad spectrum empiric antibiotics, specifically levofloxacin, piperacillin/tazobactam, vancomycin. She has had some low-grade temperature elevations. ALLERGIES: ASPIRIN, METHADONE, SUMATRIPTAN. CURRENT MEDICATIONS: Include metoprolol, spironolactone, levetiracetam, pantoprazole, lactobacillus, methylprednisolone, levofloxacin, Zosyn, vancomycin, ipratropium and albuterol inhaler. PAST MEDICAL HISTORY: As above noted, O2 requiring chronic obstructive pulmonary disease, history of cardiomyopathy with congestive heart failure, aortic insufficiency, history of cardiac dysrhythmias, atrial fibrillation, prolonged QT of Torsades, has a pacemaker and defibrillator, history of lung cancer stage 1, early remission; multiple strokes, seizures, history of urinary tract infections, previous laminectomy, spinal fusion, tonsillectomy, cholecystectomy, shoulder surgery, . SOCIAL HISTORY: Former smoker. No illicit drug use or tobacco. FAMILY HISTORY: Noncontributory. REVIEW OF SYSTEMS: Unobtainable. PHYSICAL EXAMINATION: GENERAL: She appears chronically ill certainly given her age, undernourished. VITAL SIGNS: Temperature 99, pulse 93, respirations 16, blood pressure 110/71. SKIN: Warm, [place] [id number] CONSULTATION Name: RAYMON HIRSCHTED Lane Room: [address]#: [id number] Admission: 07/16/17 Attend Phys: Costa Holland, Discharge: Date of : 54 Report #: [id number] HEENT: ET tube in place. She does have an abrasion over her nose. NECK: Supple. LUNGS: Scattered coarse breath sounds. HEART: Borderline tachycardic. I do not appreciate any murmur. ABDOMEN: Soft, mildly distended. There are no peritoneal signs. GENITOURINARY: Deferred. RECTAL: Deferred. LABORATORY DATA: Most recent chest x-ray showed left lower lobe infiltrate. Blood cultures sterile thus far from the 3rd. TSH is 0.447. Prealbumin of 22.2. C. diff was negative. Screening MRSA PCR was negative. Random cortisol was 6.9. ABG from yesterday morning, pH 7.365, pCO2 of 30.7, pO2 of 126.2, was on FiO2 of 40%. Sputum culture shows upper respiratory tract karen. Legionella urinary antigen was nonreactive as well as pneumococcal urinary antigen. ASSESSMENT: Pneumonitis. This is a readmission. Clearly, she has got some severe underlying medical issues including O2 requiring chronic obstructive pulmonary disease. I am sure it is a multifactorial etiology as to her clinical deterioration. We will continue broad spectrum empiric antimicrobial therapy at this point. It is difficult to imagine she will have a speedy response. Continue efforts to wean as allowed. Try to optimize her nutritional status. <ELECTRONICALLY SIGNED> By: Michoacano Noble MD 07/18/17 1135 [id number] Noble MD /nt
[2017-07-18 11:57] LABS: BE -7.5 mmol/L (-2 to +3); HCO3 16.3 mmol/L (22.0-26.0); PCO2 28.7 mmHg (35.0-45.0); PO2 109.4 mmHg (75.0-100.0); pH 7.372 (7.340-7.450)
--- NOTE | 2017-07-18 12:44 | NUR ---
PATIENT EXTUBATED SELF WANTS TO GET OUT OF HERE. TOLERATING 5L NC. VS WNL. HAS BEEN CALLED WILL TAKE SHOWER AND COME IN TO SEE PATIENT.
[2017-07-18 13:41] LABS: HCO3 16.5 mmol/L (22.0-26.0); PCO2 27.9 mmHg (35.0-45.0); PO2 109.5 mmHg (75.0-100.0); pH 7.389 (7.340-7.450)
--- NOTE | 2017-07-18 16:13 | NUR ---
PATIENT TOLERATING 5L FIO2 APPEARS TO BE CONFUSED AT TIMES IN TO SEE PATIENT. PATIENT TAKING PO WELL ADVANCING DIET TO HEEART HEALTHY. PROGRESSING.
[2017-07-19] VITALS (11 sets, daily range): BP systolic 131–164; BP diastolic 54–74
[2017-07-19 04:08] LABS: BE -4.4 mmol/L (-2 to +3); HCO3 19.6 mmol/L (22.0-26.0); PCO2 32.9 mmHg (35.0-45.0); pH 7.393 (7.340-7.450)
[2017-07-19 04:10] LABS: PO2 132.7 mmHg (75.0-100.0)
[2017-07-19 06:03] LABS: HEMATOCRIT 36.4 % (37.0-47.0); HEMOGLOBIN 12.3 gm/dL (12.0-15.0); MCH 30.4 pg (26.0-34.0); MCHC 33.8 g/dL (28.0-37.0); MCV 90.1 fL (80.0-100.0); MPV 10.6 fl. (7.2-11.1); RBC 4.04 mil/uL (4.20-5.00); RDW-CV 13.9 % (10.5-14.5)
[2017-07-19 06:20] LABS: CALCIUM 8.1 mg/dL (8.5-10.1); CREATININE 0.9 mg/dL (0.6-1.3); MAGNESIUM 1.6 mg/dL (1.8-2.4); POTASSIUM 3.1 mmol/L (3.5-5.1)
--- NOTE | 2017-07-19 08:06 | CON ---
[address] [address] CONSULTATION Name: MAULIK HIRSCH Room: [address] IN M.R.#: [id number] Admission: 07/16/17 Attend Phys: Costa Holland, Discharge: Date of : 54 Report #: [id number] THIS REPORT FOR: //name// CC: KARON physician/PCP Costa Holland REASON FOR CONSULTATION: Acute respiratory failure. HISTORY OF PRESENT ILLNESS: The patient is a 67-year-old female patient who is known to have history of COPD, and actually, she was recently hospitalized at this facility. She has a previous history of lung cancer, status post treatment. She was in this facility not long time ago, and she was discharged, but she was not on oxygen. She presented to the ER with shortness of breath and weakness. She feels tired and fatigued. She could not even get out of bed according to her. Apparently, they tried BiPAP, she was very intolerant to it, and she asked to be intubated. She ended up intubated because of her BiPAP intolerance and secondary to respiratory distress. Per the admitting history, she had no nausea, no vomiting, no diarrhea. She is known to have history of COPD and smoking. When I saw her this morning, she was intubated. She was on propofol, but actually she was responsive, following commands. She was on 40% FIO2, seems to be tolerating the vent very well at this point. During the last hospitalization, she was requiring significant amount of oxygen up to 15 liters with a Ventimask; however, she did not tolerate BiPAP. She improved with steroids and antibiotic in addition to diuresis and she was released. ALLERGIES: ASPIRIN, METHADONE, SUMATRIPTAN. PAST MEDICAL HISTORY: COPD, previous history of pneumonia. CHF with cardiomyopathy, ejection fraction 45%. Aortic insufficiency, history of cardiac arrhythmia with atrial fibrillation. She is status post pacemaker defibrillator placement. She has history of tachycardia, syncopal episodes, multiple CVAs with lung cancer and seizures. PAST SURGICAL HISTORY: Tonsillectomy, laminectomy, , cholecystectomy, shoulder surgery. FAMILY HISTORY: At this point not obtainable. SOCIAL HISTORY: No history of alcohol abuse or drug abuse. She is a smoker. REVIEW OF SYSTEMS: Limited. She is intubated at this point, could not participate in the history. PHYSICAL EXAMINATION: VITAL SIGNS: On examination, she is on the vent, O2 saturation 98%, blood pressure 110/55, respiratory rate 17, temperature 37.1. GENERAL: Thin lady, awake, responsive, even though on sedation, [place] [address] CONSULTATION Name: MAULIK HIRSCH Room: [address] IN M.R.#: [id number] Admission: 07/16/17 Attend Phys: Costa Holland, Discharge: Date of : 54 Report #: [id number] commands. HEAD: Normocephalic, atraumatic. EYES: Pupils equal, reactive to light. ENT: External ear looks healthy and normal. Nasal cavity patent passages. Oral cavity: Moist mucous membrane. ET tube in place. NECK: Supple. No palpable lymph nodes. No palpable thyroid. Trachea central. CHEST: Diminished air movement bilaterally, some crackles at the left lung base. I did not hear wheezes. HEART: S1, S2, no murmur. CHEST: Normal inspection. ABDOMEN: Benign, soft, lax, nontender, positive bowel sounds. No masses felt. LOWER EXTREMITIES: No edema, no calf tenderness. No deformities on extremities inspection. PSYCHIATRIC: Mood and affect could not be evaluated. NEUROLOGIC: Although she is on sedation, but she moves her extremities and follow commands. LABORATORY STUDIES: Her ABGs upon hospitalization on 2 liters by nasal cannula 7.44 and that was done on 2 liter oxygen. Her creatinine is 0.9, potassium 4.3, sodium 137. BNP was slightly elevated at 628. Her chest x-ray showed left basilar atelectasis. No definite infiltrate, with ET tube in good position. IMPRESSION: 1. Acute respiratory failure. 2. Respiratory distress. 3. Chronic obstructive pulmonary disease exacerbation. 4. History of lung cancer. 5. Cardiomyopathy, ejection fraction 45%. 6. History of arrhythmia. The patient looks really comfortable today on the vent. I did not hear active wheezes. Chest x-ray relatively clear compared to her baseline other than left lower base atelectasis. I would continue the antibiotics at this point, scheduled nebulization treatments. I am going to add steroids to her medication regimen. We will do a repeat chest x-ray in the morning. I will consider weaning trial. For now, continue the current plan of sedation. Thank you for the consult. <ELECTRONICALLY SIGNED> By: Nghia Dempsey MD 07/19/17 0806 [id number] Reyes MD /nt
--- NOTE | 2017-07-19 10:00 | NUR ---
PATIENT IS M/S TELE
--- NOTE | 2017-07-19 14:28 | NUR ---
SW met with pt, pt , and pt step dtr to complete assessment and discuss safe dc planning. Pt said that if pt was able to "get up and walk a little" that they would want to take pt home with HH. Pt said that he was able to use the gait belt and help pt around the house. Nurse discussed with SW that pt family considering SNF at dc if needed and SW discussed SNF placement options with family. Pt/family want a facility as close to [place] as possible. SW to continue to follow to assist with safe dc planning.
--- NOTE | 2017-07-19 17:19 | NUR ---
PATIENT TRANSFER FROM ICU, REPORT TAKEN FROM YUNG. PATIENT IS A&OX4, ON 2LO2 VIA NC. IV RIGHT SUBCLAVIAN TRIPPLE LUMEN, FLUSHES AND DRAWS WELL. UP WITH MAX ASSISTX1 WITH WALKER AND GAITBELT. NO C/O PAIN/N/V. NO OTHER CONCERNS AT THIS TIME. SPOKE WITH PATIENT AND FAMILY IN REGARDS TO SHORT TERM CARE FOR REHAB VS OUTPATIENT HOME HEALTH. FAMILY AND PATIENT SAID THEY WOULD KEEP AN OPEN MIND FOR SHORT TERM CARE. APPROPRAITE AND COOPORATIVE WITH CARE.
[2017-07-19 17:55] LABS: MAGNESIUM 1.5 mg/dL (1.8-2.4)
[2017-07-20] VITALS (8 sets, daily range): BP systolic 133–160; BP diastolic 67–79
--- NOTE | 2017-07-20 01:17 | NUR ---
PT HAD RUN OF VTACH AND HR STAYING ELEVATED. DR NOTIFIED THAT PT HAS NOT HAD HER METPROLOL TODAY, MED REORDERED AND GIVEN AT THIS TIME. WILL CONTINUE TO MONITOR.
[2017-07-20 02:07] LABS: ADENOVIRUS Negative (Negative); INFLUENZA A Negative (Negative); INFLUENZA B Negative (Negative); METAPNEUMOVIRUS Negative (Negative); PARAINFLUENZA 1 Negative (Negative); PARAINFLUENZA 2 Negative (Negative); PARAINFLUENZA 3 Negative (Negative); RHINOVIRUS Negative (Negative); RSV A Negative (Negative); RSV B Negative (Negative)
--- NOTE | 2017-07-20 06:51 | NUR ---
PT REMAINS TACHY IN LOW 100'S WITH OCC PVC BUT NO MORE VTACH. ROME DRAINGING YELLOW URINE. R SUBCLAVIAN SL, ABX GIVEN ORDERED. ROOM AIR SAT 100% AT HS. NO LABS THIS MORNING. TRAMADOL GIVEN X1 FOR CO PAIN WITH GOOD RESULT. SOMA GIVEN X1 WITH GOOD RESULT. VSS. AFEBRILE. ABLE TO USE CALL LITE AND MAKE NEEDS KNOWN. BED ALARM ON FOR SAFETY. AO, DROWSY AT TIMES, WEAK, FATIGUED.
--- NOTE | 2017-07-20 16:16 | NUR ---
SW faxed SNF referral to [facility] for pt possible dc soon. SW to continue to follow to assist with safe dc planning.
--- NOTE | 2017-07-20 19:56 | NUR ---
PATIENT A&OX4, FORGETFUL AT TIMES. ON ROOM AIR, RIGHT SUBCLAVIAN TRIPPLE LUMEN FLUSHES AND DRAWS WELL. UP WITH MAX ASSISTX1 WITH GAITBELT AND WALKER, UNSTEADY ON FEET. ROME CATHETER IN PLACE, ABLE TO CALL FOR ASSISTANCE WHEN NEEDING TO HAVE BM. PATIENT HAD BMX3 SOFT, WITH NO ODOR. C/O BACK PAIN, MINIMAL TO PARTIAL RELIEF STATED BY PATIENT. PATIENT FOUND TO BE RESTING QUIETLY IN ROOM AFTER PAIN MEDICATIONS GIVEN. NO OTHER CONCERNS AT THIS TIME. APPROPRIATE AND COOPORATIVE WITH CARE.
[2017-07-21 04:00] VITALS: BP 160/73
--- NOTE | 2017-07-21 05:35 | NUR ---
PT IS ABLE TO COMMUNICATE HER NEEDS TO STAFF WITH ONLY VERY MINOR DIFFICULTY; SHE HAS BEEN DROWSEY AT TIMES AND REQUIRED SOME EXTRA TIME TO ANSWER. CURRENT PAIN MEDICATION REGIMEN HAS BEEN ADEQUATE FOR CONTROLLING HER PAIN UP TO THIS TIME. WILD IS PATENT. PT HAS BEEN UP MULTIPLE TIMES TO HAVE BMs; SPECIMEN SENT TO LAB TO CHECK FOR C.DIFF; RESULTS PENDING.
[2017-07-21 07:30] VITALS: BP 150/73
[2017-07-21 11:08] VITALS: BP 152/85
[2017-07-21 16:41] VITALS: BP 145/81
--- NOTE | 2017-07-21 16:56 | NUR ---
SW received call from [facility] admissions stating that they will not have a bed available until Tuesday. SW met with pt and pt family to discuss other possible options for SNFs. Pt does not want [facility] and pt did not want to have to drive very far. Pt wondered about [facility] but they are not in network with pt insurance. SW sent referral to [facility] and if pt is to dc tomorrow, facility will need SW to call in the morning because beds are limited. SW to continue to follow to assist with finalizing safe dc plan.
[2017-07-21 20:15] VITALS: BP 132/76
--- NOTE | 2017-07-21 21:09 | NUR ---
ASSUMED CARES OF PT AT 0700. PT IN BED ASLEEP, BED IN LOW AND LOCKED POSITION, BED ALARM ON FOR FALL PRECAUTIONS, CALL BUTTON AND PERSONAL ITEMS IN PT REACH. PT REFUSES SCD'S THIS SHIFT. PT A&O X2/DROWSEY. SINUS RHYTHM/PACEMAKER ON MONITOR. VSS ON RA, LUNGS SOUND WET, IV LASIX ORDERED. PT AFEBRILE, CHRONIC PAIN IN BACK, LEGS, FEET, PO PAIN MED SOMEWHAT EFFECTIVE TO TOLERABLE. PT REPORTS MULTIPLE SOFT BM'S, PT ON CONTACT PRECAUTIONS PENDING C-DIFF TEST. ROME CATH PATENT WITH CLEAR YELLOW URINE. HOURLY ROUNDS AND Q2 TURNS COMPLETED. PT WEAK, OCC. CONFUSED WHILE DROWSEY, UP WITH ONE TO TWO ASSIST TO BSC. RIGHT IJ TRIPLE LUMEN IV PATENT, NO S/S OF INFECTION/SALINE LOCKED. MG REPLACED/EFFECTIVE/WNL. SPOKE WITH REGARDING PT BNP RISING. PT CONSULTED FOR REHAB/, PULMONOLGY, ONCOLOGY, ID/DR. DIALLO. PT OFTEN HAS DIFFICULTY GETTING SENTENCES OUT TO UNDERSTAND, MUMBLES. SKIN INTACT, SCATTERED BRUISING/SCARS, REDNESS ON BOTTOM REQUIRES Q2 TURNS. REPORT TO DRILL OPERATOR PNEUMATIC FOR CONTINUED CARES.
[2017-07-22 00:28] VITALS: BP 164/87
--- NOTE | 2017-07-22 01:40 | NUR ---
DR NOTIFIED THAT PT STATES MEDS ARE NOT WORKING TO CONTROL PAIN. EDUCATION TO PT REGARDING NARCOTIC AND SUPPRESSION OF RESPIRATIONS-PT STATES SHE UNDERSTANDS THAT BUT REQUESTING DR BE NOTIFIED FOR ONE TIME DOSE. ORDERS RECEIVED FOR NO MORPHINE TONIGHT AND PT CAN DISCUSS WITH IN THE MORNING.
--- NOTE | 2017-07-22 05:21 | NUR ---
PT AWAKE OFF AND ON UNTIL ABOUT 0230, COMPLAINING OF PAIN- PO MED, SOMA AND VALIUM GIVEN ORDERED WITH BRIEF RELIEF. PT REQUESTED DR BE CALLED TO ASK FOR ONE TIME DOSE OF MORPHINE-DR NOTIFIED AND NO NEW ORDERS RECEIVED. PT RELUCTANTLY TAKING TRAMADOL AFTER THAT AND HAS BEEN SLEEPING WELL SINCE THAT TIME. ROOM AIR SAT 93-96%. TELE ST. ROME DRAINING YELLOW URINE. RTLIJ SL, SOLUMEDROL GIVEN ORDERED, PO ABX GIVEN ORDERED. CDIFF NEGATIVE AND ISOLATON DISCONTINUED. NO BM THIS SHIFT. NO LABS THIS MORNING. ABLE TO USE CALL LITE AND MAKE NEEDS KNOWN. BED ALARM ON FOR SAFETY.
[2017-07-22 07:56] VITALS: BP 180/88
--- NOTE | 2017-07-22 11:08 | NUR ---
Possibility for pt to dc tomorrow, Sunday 07/23. HOLLI called Ratna with admissions at [facility] who accepted referral and said that pt could admit to SNF at [facility] on Tuesday. HOLLI called and spoke with pt who to inform of pt acceptance to SNF [facility]. SW to follow to fax final order and med list to [facility] at [phone].
[2017-07-22 11:29] VITALS: BP 154/81
[2017-07-22 16:03] VITALS: BP 169/81
--- NOTE | 2017-07-22 18:40 | NUR ---
RESUMED CARE THIS AM. REDNESS AND SWELLING TO BILAT LE DECREASED GREATLY. 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 DENIES PAIN, DOES NOT LIKE HAVING AN IV IN PLACE. 20G TO RFA INFILTRATED, NEW IV 20G TO LEFT FA X 1 AMTTEMPT SUCCESSFUL. AMY IV ABT WITHOUT ADR. CONT TO BE INCONTINENT OF BLADDER, HAS HAD 3 BM THIS SHIFT. CALL LIGHT IN REACH, CONT POC.
--- NOTE | 2017-07-22 19:00 | NUR ---
RESUMED CARE THIS AM. UP FOR MEALS, CONT WITH INDWELLING CATHETER FOR IMMOBILITY. CONT ON RA, VSS. DISCHARGE PLAN IS FOR SKILLLED STAY, THEN HOME WITH HOME HEALTH. PATIENT DID TOLERATE 100' AMBULATION ON RA. CONT POC, CALL LIGHT IN REACH.
[2017-07-23 00:22] VITALS: BP 152/80
[2017-07-23 03:32] VITALS: BP 142/75
--- NOTE | 2017-07-23 05:48 | NUR ---
PATIENT ALERT AND ORIENTED. VITALS STABLE. RA. WEARS 2L AT HS. COILED COIL INSPECTOR READS SINUS RHYTHM. REPOSITONED EVERY TWO HOURS. ROME TO DEPENDENT DRAINAGE. HOURLY ROUNDS. BED ALARM IN USE. NURSING WILL CONTINUE TO MONITOR.
[2017-07-23 08:00] VITALS: BP 145/82
--- NOTE | 2017-07-23 10:09 | NUR ---
ROME CATHETER REMOVED PT DOES NOT MEET REQUIREMENT FOR ROME. PT ASKS FOR BEDPAN. PT ENCOURAGED TO USE BSC. PT UP TO BSC WITH 1 ASSIST. ENCOURAGED PT TO GET UP IN CHAIR. PT REFUSES. PT STATES "JUST GET ME IN BED AND TURN THE LIGHTS OUT AND LEAVE ME ALONE SO I CAN SLEEP". DISCUSSED WITH PT INCREASING ACTIVITY TODAY. PT STATES "I WILL THINK ABOUT IT"
[2017-07-23 12:12] VITALS: BP 142/83
--- NOTE | 2017-07-23 12:52 | NUR ---
PT LOW O2 SATS DROP TO 80S WITH AMBULATION AND WHEN O2 REMOVED. 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 PT STATES THERE IS NO OTHER WAY HOME. PT REFUSES HOME O2 AT THIS TIME. DR FLORES NOTIFIED. PT IS AGREEABLE TO ARRANGING HOME O2 THROUGH HER PCP
--- NOTE | 2017-07-23 13:40 | NUR ---
RESUMED CARE, REPORT RECEIVED, ANTICIPATE DISCHARGE TO [facility] THIS AFTERNOON FOR THERAPY SERVICES. PATIENT A/O X 4, CHRONIC PAIN TO LOWER BACK MANAGED WITH ORAL MEDICATION. LAST BOWEL MOVEMENT TODAY, TOLERATED 50% OF LUNCH, 92% ON RA, NO DISTRESS NOTED, DISCHARGE PLANS CONFIRMED WITH PATIENT. ANTICIPATE TRANSPORT AROUND 3 PM.
--- NOTE | 2017-07-23 14:04 | NUR ---
Pt discharging to [facility] snf today. Faxed dc orders. Chart copied. Nurse report number provided, . Updated Pt's , he will meet Pt at [facility]. [facility] will provide dc transportation, Pt to dc at 3:30pm.
[2017-07-23] MEDS ORDERED: ALBUTEROL SULFATE PO (15:04)
[2017-07-23] MEDS ORDERED: AUGMENTIN 875-1 EACH PO (15:07)
[2017-07-23] MEDS ORDERED: FLORANEX TABLE1 EACH PO (15:13)
[2017-07-23] MEDS ORDERED: SINGULAIR 10 MG10 M1 PO (15:22)
--- NOTE | 2017-07-23 17:44 | NUR ---
PATIENT DISCHARGED TO [facility], PERSONAL EFFECTS GATHERED AND ACCOUNTED FOR, IN COMPANY OF . REPORT CALLED TO [facility], TLC TO RIJ REMOVED WITHOUT INCIDENT, PRESSURE APPLIED, DRESSED, NO BLEEDING NOTED. TRANSPORTED VIA WHEELCHAIR VAN IN STABLE CONDITION.
--- NOTE | 2017-08-03 13:45 | CON ---
[address] [address] CONSULTATION Name: MAULIK HIRSCH Room: [address]R.#: [id number] Admission: 07/16/17 Attend Phys: Costa Holland, Discharge: 07/23/17 Date of : 54 Report #: [id number] THIS REPORT FOR: //name// CC: Parker Holland DATE OF SERVICE: 07/20/2017 REASON FOR CONSULTATION: Evaluation and recommendations regarding post-acute rehabilitation in a female admitted to [facility] with respiratory failure with multiple medical comorbidities. Previous level of function was modified independent to independent with activities of daily living. Current level of function is minimum assistance depending on therapy, activity and time of day. She was admitted with acute respiratory failure, metabolic encephalopathy, COPD exacerbation, ongoing tobacco use, respiratory alkalosis, Gram-positive pneumonia and damdi-bx-tmuaawz systolic congestive heart failure. She does also have a history of seizures and aortic insufficiency. She has been working with therapy. With occupational therapy she is currently dependent. There is no data on physical therapy or speech and language pathology. ALLERGIES: To METHADONE, ASPIRIN, SUMATRIPTAN. Vital signs and laboratories are reviewed and are available in the MAR. PAST MEDICAL HISTORY: COPD, pneumonia, CHF, cardiomyopathy, elevated troponin, aortic insufficiency, pacemaker, tachycardia, syncopal episodes, fall, facial contusion, laceration of neck, lung cancer, multiple CVAs, seizures, history of UTIs. FAMILY HISTORY: Nothing significant. SOCIAL HISTORY: No tobacco, alcohol or illicit drug use. REVIEW OF SYSTEMS: Fourteen-point review of systems is done and is negative except as mentioned in HPI, specifically no fever, chest pain, shortness of breath, abdominal pain or distention. PHYSICAL EXAMINATION: GENERAL: Alert, oriented, in no apparent distress. VITAL SIGNS: Reviewed and are stable. HEENT: Atraumatic, normocephalic. Pupils equal, round, reactive. ABDOMEN: Soft, nontender, nondistended. NEUROLOGIC: Cranial nerves 2-12 are grossly intact. No focal neuro deficits. 5/5 strength in bilateral upper and lower extremities. ASSESSMENT: [place] [address] CONSULTATION Name: MAULIK HIRSCH Room: [address]#: [id number] Admission: 07/16/17 Attend Phys: Costa Holland, Discharge: 07/23/17 Date of : 54 Report #: [id number] 1. Acute respiratory failure. 2. Metabolic encephalopathy. 3. Chronic obstructive pulmonary disease exacerbation. 4. Ongoing tobacco use. 5. Respiratory alkalosis. ____ offered but not needed at this time. PLAN: Recommend skilled level of care for ongoing subacute rehabilitation as I do not feel that at this time she would be able to tolerate 3 hours of therapy upon rehabilitation given her level of dependence with her therapy at this time. <ELECTRONICALLY SIGNED> By: Amber Harris DO 08/03/17 1345 [id number] nan Thakur
--- NOTE | 2017-08-22 01:13 | CON ---
[address] [address] CONSULTATION Name: MAULIK HIRSCH Room: [address]R.#: [id number] Admission: 07/16/17 Attend Phys: Costa Holland, Discharge: 07/23/17 Date of : 54 Report #: [id number] THIS REPORT FOR: //name// CC: KARON physician/PCP Costa Holland DATE OF SERVICE: 07/17/2017 CONSULTATION: Infectious diseases. HISTORY OF PRESENT ILLNESS: Mrs Hirsch is a 67-year-old white female who was admitted to [facility] on 07/16/2017 complaining of weakness, nausea, diarrhea. The patient has been hospitalized from 07/04/2017 to 07/12/2017 at [facility]. At that time, the patient was diagnosed as having an exacerbation of COPD complicated by congestive heart failure. It was recommended that she be discharged to rehab to regain her strength, but family refused the suggestion and wanted to take her home. At home, the patient became progressively weak to the point where she would not eat, drink, or get out of bed. She therefore returns to [facility] via ER and was admitted. Infectious Disease consultation was requested because of concerns with possible sepsis. PAST MEDICAL HISTORY: Significant for atrial fibrillation, congestive heart failure, aortic insufficiency, COPD, squamous cell carcinoma of the lung diagnosed 2 years ago, seizures, stroke, chronic back pain. PAST SURGICAL HISTORY: Includes implantation of a defibrillator pacemaker, laminectomy, section, cholecystectomy and shoulder surgery. ALLERGIES: The patient's chart notes allergy to ASPIRIN, METHADONE AND IMITREX. MEDICATION RECONCILIATION: The patient is on the following medications: Lactobacillus acidophilus 1 tablet 3 times a day, methylprednisolone 40 mg IV every 8 hours, levofloxacin 500 mg IV daily, propofol drip, vancomycin 750 mg b.i.d., hydralazine 10 mg q. 6 hours p.r.n., enoxaparin 40 mg at bedtime, Zosyn 4.5 grams every 6 hours, DuoNeb aerosol. FAMILY HISTORY: Noncontributory. SOCIAL HISTORY: The patient is . She was a cigarette smoker in the past, but quit. No history of alcohol nor drugs. REVIEW OF SYSTEMS AND HOSPITAL COURSE: The patient was initially seen in the Emergency Room with a blood pressure of 218/89, this then came down to 160/78. The patient became more lethargic and there was concerned about her ability to protect her airway. She was sedated and then intubated. She was transferred to the [place] [id number] CONSULTATION Name: MAULIK HIRSCH Room: [address] M.R.#: [id number] Admission: 07/16/17 Attend Phys: Costa Holland, Discharge: 07/23/17 Date of : 54 Report #: [id number] PHYSICAL EXAMINATION: GENERAL: On examination, the patient appears chronically and acutely ill, sedated, but comfortable, not in any distress. VITAL SIGNS: Show maximum temperature of 99.2, she was 96.0 in the ER. SKIN: The patient's skin is very sallow and wrinkled. She looked older than her stated age. ENT: Shows tubes in the proper position. NECK: Supple. HEART: Sounds S1, S2. CHEST: Breath sounds are diminished. ABDOMEN: Belly is thin, soft, nontender. EXTREMITIES: Wasted, but unremarkable. Pacemaker is apparent in the left chest. The left foot is slightly red and swollen. It is unclear if this is an early cellulitis or possibly a previous trauma or possibly a fall prior to becoming bedfast. LABORATORY STUDIES: White count was 21,000 initially, now down to 15.7, hemoglobin was 16 and down to 13.6 with hydration, hematocrit 39%, platelets 149,000. Electrolytes, BUN and creatinine were normal, glucose 122. Liver function tests were normal. Albumin low at 2.3. B-type natriuretic peptide is 628. The influenza antigen is negative. Sputum Gram stain after intubation shows mixed karen. Cultures are pending. Blood cultures x 2 are negative. Chest x-ray shows left lower lobe atelectasis, not much different from when the patient left the hospital last week. ASSESSMENT AND PLAN: In summary, the patient with underlying heart and lung disease, refused rehab and at home develops nausea, diarrhea, profound weakness and depressed mental status. In the Emergency Room, there was concerned about her ability to protect her airway and she is intubated. Septic parameters include hypothermia and then slightly febrile, leukocytosis and there is concern there may be an early cellulitis on her left foot. At this time, the patient is on broad spectrum antibiotic therapy with vancomycin, Zosyn and Levaquin. I will await results of blood and sputum cultures. It may be worthwhile to culture for respiratory viruses and legionella as well. We can check urinary antigens for pneumococcus and legionella. The patient does take prednisone for her chronic obstructive pulmonary disease and may require stress dose steroids. She is currently receiving the Solu-Medrol 40 mg every 8 hours. At this point it is unclear the patient is all that different than when she left the hospital. She has minimal fever. Her white count is almost back to normal. Her x-ray is not that different. It may be worthwhile to address with the family if they want to clarify their goals for therapy in this patient with apparently chronic obstructive pulmonary disease, heart [place] [address] CONSULTATION Name: MAULIK HIRSCH Room: [address]R.#: [id number] Admission: 07/16/17 Attend Phys: Costa Holland, Discharge: 07/23/17 Date of : 54 Report #: [id number] For now, she is a full code and is back in the ICU on a ventilator after being home for approximately 5 days. This by itself is a rather ominous prognostic indicator. For now, we will continue broad spectrum antibiotic therapy until the patient stabilizes and cultures come back. I appreciate the opportunity to offer infectious disease input into her care. Dr. Noble will return on Tuesday for further followup. <ELECTRONICALLY SIGNED> By: Donald Perkins MD 08/22/17 0113 2145 0229Donald Perkins MD /nt
== END 2017-07-23 17:00 | DRG 871 ==
LOC: M.ERS 13:03 → M.TBA-ER 14:06 → M.3W 14:06 → M.ICU 14:06 → M.3W 07-19 14:26
PROVIDERS: Family Medicine; Internal Medicine; Internal Medicine Infectious Disease; Internal Medicine Pulmonary Disease; Physician Assistant; ADMIT Family Medicine
PROC: 0BH17EZ Insertion of Endotracheal Airway into Trachea, Via Natural or Artificial Opening (ICD-10-PCS; principal; 2017-07-16)
PROC: 5A1945Z Respiratory Ventilation, 24-96 Consecutive Hours (ICD-10-PCS; principal; 2017-07-16)
PROC: 02HV33Z Insertion of Infusion Device into Superior Vena Cava, Percutaneous Approach (ICD-10-PCS; 2017-07-16)
DX: A41.9 Sepsis, unspecified organism (principal); J96.01 Acute respiratory failure with hypoxia; J18.9 Pneumonia, unspecified organism; I50.23 Acute on chronic systolic (congestive) heart failure; G93.41 Metabolic encephalopathy; J44.0 Chronic obstructive pulmonary disease with (acute) lower respiratory infection; J44.1 Chronic obstructive pulmonary disease with (acute) exacerbation; I42.9 Cardiomyopathy, unspecified; E87.3 Alkalosis; N17.9 Acute kidney failure, unspecified; G89.29 Other chronic pain; M54.9 Dorsalgia, unspecified; F41.9 Anxiety disorder, unspecified; I35.1 Nonrheumatic aortic (valve) insufficiency; I48.91 Unspecified atrial fibrillation; Z95.0 Presence of cardiac pacemaker; Z85.118 Personal history of other malignant neoplasm of bronchus and lung; Z86.73 Personal history of transient ischemic attack (TIA), and cerebral infarction without residual deficits; Z90.49 Acquired absence of other specified parts of digestive tract; Z88.6 Allergy status to analgesic agent; Z88.8 Allergy status to other drugs, medicaments and biological substances; Z87.891 Personal history of nicotine dependence; Z79.899 Other long term (current) drug therapy

== ENCOUNTER → 2018-08-28 | Outpatient (CLI) | payer OTHER ==
[~2018-08-28] MED LIST changes: +ALBUTEROL SULFATE PO; +AUGMENTIN 875-1 EACH PO; +FLORANEX TABLE1 EACH PO; +SINGULAIR 10 MG10 M1 PO
== END ==
LOC: M.RAD 10:06
DX: R19.7 Diarrhea, unspecified (principal)

== ENCOUNTER 2019-02-07 21:02 | Emergency (ER) | payer OTHER ==
[~2019-02-07] VITALS: Ht 162.6 cm; Wt 59.0 kg
[2019-02-07] MEDS ORDERED: NORCO 5-325 TA1 EAC1 PO (21:19)
[2019-02-07 21:45] LABS: ABSOLUTE LYMPHOCYTES 2.1 thou/uL (0.8-5.3); ABSOLUTE MONOCYTES 0.4 thou/uL (0.0-1.2); ABSOLUTE NEUTROPHILS 3.3 thou/uL (1.6-8.1); BASOPHILS 0.4 %; HEMATOCRIT 35.3 % (37.0-47.0); HEMOGLOBIN 11.9 gm/dL (12.0-15.0); LYMPHOCYTES 36.3 %; MCH 32.7 pg (26.0-34.0); MCHC 33.6 g/dL (28.0-37.0); MCV 97.3 fL (80.0-100.0); MONOCYTES 7.6 %; MPV 13.3 fl. (7.2-11.1); NUCLEATED RBCS 0 /100WBC; PLATELET COUNT* 52 thou/uL (150-400); POLYS 55.7 %; RBC 3.63 mil/uL (4.20-5.00); RDW-CV 13.1 % (10.5-14.5); WBC 5.9 thou/uL (4.0-11.0)
[2019-02-07 21:51] LABS: PROTIME 10.1 Seconds (9.20-11.50)
[2019-02-07 21:58] LABS: ANION GAP 7 mmol/L (7-16); BUN 25 mg/dL (7-18); CALCIUM 7.8 mg/dL (8.5-10.1); CHLORIDE 106 mmol/L (98-107); CO2 27 mmol/L (21-32); GLUCOSE 96 mg/dL (70-99); POTASSIUM 3.4 mmol/L (3.5-5.1); SODIUM 140 mmol/L (136-145)
[2019-02-07 22:34] LABS: URINE BILIRUBIN NEGATIVE (Negative); URINE BLOOD TRACE (Negative); URINE CLARITY CLEAR; URINE COLOR YELLOW; URINE GLUCOSE-RANDOM NEGATIVE (Negative); URINE KETONES NEGATIVE (Negative); URINE LEUKOCYTES-REFLEX 1+ (Negative); URINE NITRITE-REFLEX POSITIVE (Negative); URINE PROTEIN NEGATIVE (Negative); URINE UROBILINOGEN 0.2 E.U./dl (0.2-1.0)
[2019-02-07 22:37] LABS: ALBUMIN 2.9 g/dL (3.4-5.0); ALKALINE PHOSPHATASE 140 U/L (46-116); AMMONIA 41 umol/L (11-32); LIPASE 88 U/L (73-393); NT-PRO BRAIN NAT PEPTIDE 705 pg/mL (<300); SGOT 10 U/L (15-37); SGPT 18 U/L (30-65); TOTAL BILIRUBIN 0.2 mg/dL (<0.1-1.0); TOTAL PROTEIN 5.9 g/dL (6.4-8.2); TROPONIN-I LEVEL <0.06 ng/mL (<0.06)
[2019-02-07 22:40] LABS: BACTERIA-REFLEX >30 Many /HPF (None Seen); SQUAMOUS >10 Many /LPF (0-3)
[2019-02-07 22:41] LABS: CASTS None Seen /LPF (None Seen); CRYSTALS None Seen /LPF (None Seen); MUCUS None Seen strn/LPF (None Seen); URINE RBC 0-2 Rare /HPF (0-2); URINE WBC-REFLEX 6-15 Few /HPF (0-5)
[2019-02-07 22:48] LABS: AMP/METHAMP Negative (Negative); BARBITURATES Negative (Negative); BENZODIAZEPINES POSITIVE (Negative); COCAINE Negative (Negative); METHADONE Negative (Negative); OPIATES POSITIVE (Negative); PCP Negative (Negative); THC Negative (Negative)
[2019-02-07] MEDS ORDERED: KEFLEX500 M1 PO (22:59)
[2019-02-07 23:15] VITALS: BP 130/78
--- NOTE | 2019-02-09 11:00 | EKG ---
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
== END 2019-02-07 23:16 | disposition home or self-care (01) ==
LOC: M.ERS 21:02
PROVIDERS: Emergency Medicine
DX: N39.0 Urinary tract infection, site not specified (principal); I50.9 Heart failure, unspecified; I48.91 Unspecified atrial fibrillation; J44.9 Chronic obstructive pulmonary disease, unspecified; F17.210 Nicotine dependence, cigarettes, uncomplicated; Z95.0 Presence of cardiac pacemaker; Z85.118 Personal history of other malignant neoplasm of bronchus and lung; Z90.89 Acquired absence of other organs; Z90.49 Acquired absence of other specified parts of digestive tract; Z98.890 Other specified postprocedural states; Z86.73 Personal history of transient ischemic attack (TIA), and cerebral infarction without residual deficits; Z88.6 Allergy status to analgesic agent; Z88.0 Allergy status to penicillin; Z88.1 Allergy status to other antibiotic agents; Z88.5 Allergy status to narcotic agent

== ENCOUNTER 2020-02-15 23:43 | Inpatient (IN) | payer OTHER ==
[~2020-02-15] VITALS: Ht 165.1 cm; Wt 64.5 kg
[~2020-02-15 23:43] MED LIST changes: -CARISOPRODOL 3350 MG PO; +COZAAR 50 MG TA50 M1 PO; +KEFLEX500 M1 PO; +NORCO 10-325 T1 EACH PO; +NORCO 5-325 TA1 EAC1 PO; +SOMA350 MG PO
[2020-02-16] VITALS (7 sets, daily range): BP systolic 118–181; BP diastolic 54–89
[2020-02-16 00:23] LABS: ABSOLUTE BASOPHILS 0.1 thou/uL (0.0-0.2); ABSOLUTE LYMPHOCYTES 5.6 thou/uL (0.8-5.3); ABSOLUTE NEUTROPHILS 11.3 thou/uL (1.6-8.1); BASOPHILS 0.5 %; HEMATOCRIT 46.9 % (37.0-47.0); HEMOGLOBIN 15.6 gm/dL (12.0-15.0); LYMPHOCYTES 31.2 %; MCH 31.8 pg (26.0-34.0); MCHC 33.2 g/dL (28.0-37.0); MCV 95.8 fL (80.0-100.0); MONOCYTES 5.7 %; MPV 10.1 fl. (7.2-11.1); NUCLEATED RBCS 0 /100WBC; PLATELET COUNT* 256 thou/uL (150-400); POLYS 62.6 %; RBC 4.89 mil/uL (4.20-5.00); RDW-CV 14.7 % (10.5-14.5); WBC 18.1 thou/uL (4.0-11.0)
[2020-02-16 00:33] LABS: CALCIUM 8.2 mg/dL (8.5-10.1); CREATININE 1.6 mg/dL (0.6-1.3); POTASSIUM 4.6 mmol/L (3.5-5.1)
[2020-02-16 00:35] LABS: APTT 23.9 Seconds (25.0-31.3); PROTIME 10.6 Seconds (9.20-11.50)
[2020-02-16 00:39] LABS: URINE BILIRUBIN NEGATIVE (Negative); URINE BLOOD 1+ (Negative); URINE CLARITY CLEAR; URINE COLOR YELLOW; URINE GLUCOSE-RANDOM NEGATIVE (Negative); URINE KETONES NEGATIVE (Negative); URINE LEUKOCYTES-REFLEX NEGATIVE (Negative); URINE NITRITE-REFLEX NEGATIVE (Negative); URINE PROTEIN NEGATIVE (Negative); URINE UROBILINOGEN 0.2 E.U./dl (0.2-1.0)
[2020-02-16 00:49] LABS: ALBUMIN 3.4 g/dL (3.4-5.0); MAGNESIUM 2.3 mg/dL (1.8-2.4); TOTAL BILIRUBIN 0.8 mg/dL (<0.1-1.0); TOTAL PROTEIN 7.3 g/dL (6.4-8.2)
[2020-02-16 00:56] LABS: CASTS None Seen /LPF (None Seen); CRYSTALS None Seen /LPF (None Seen); MUCUS 4-6 Moderate strn/LPF (None Seen); SQUAMOUS 0-3 Few /LPF (0-3); TRANSITIONAL EPITHEL CELL 0-3 Few /LPF (None Seen); URINE RBC 3-10 Few /HPF (0-2); URINE WBC-REFLEX 0-5 Rare /HPF (0-5)
--- NOTE | 2020-02-16 10:11 | EKG ---
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[place] : 1950 Requested By: Ze Rosenthal Order Number: [id number] MD: Floyd Thomas Measurements Intervals [place] Rate: 119 P: 48 VT: 165 QRS: 56 QRSD: 96 T: 90 QT: 320 QTc: 451 Interpretive Statements Sinus tachycardia Probable left atrial enlargement Borderline ST elevation, early repolarization Compared to ECG 02/07/2019 21:21:31 ST (T wave) deviation now present Sinus rhythm no longer present Electronically Signed On 02-16-2020 10:10:54 CDT by Floyd Thomas [email or web address] <ELECTRONICALLY SIGNED> By: Floyd Thomas MD, FAC 02/16/20 1010 2348 2348 Floyd Thomas MD, FAC /EPI
[2020-02-17] VITALS: BP 131/57
[2020-02-17 04:00] VITALS: BP 113/44
[2020-02-17 04:45] LABS: HEMATOCRIT 40.6 % (37.0-47.0); MCH 31.9 pg (26.0-34.0); MCHC 34.4 g/dL (28.0-37.0); MCV 92.9 fL (80.0-100.0); RBC 4.37 mil/uL (4.20-5.00); RDW-CV 14.1 % (10.5-14.5); WBC 12.2 thou/uL (4.0-11.0)
[2020-02-17 05:41] LABS: CALCIUM 8.2 mg/dL (8.5-10.1); CREATININE 1.6 mg/dL (0.6-1.3); MAGNESIUM 1.9 mg/dL (1.8-2.4); TOTAL BILIRUBIN 0.4 mg/dL (<0.1-1.0); TOTAL PROTEIN 6.3 g/dL (6.4-8.2)
[2020-02-17 08:00] VITALS: BP 124/63
[2020-02-17 12:00] VITALS: BP 127/61
[2020-02-17 16:00] VITALS: BP 138/64
[2020-02-17 20:00] VITALS: BP 166/79
[2020-02-18 00:34] VITALS: BP 164/61
[2020-02-18 04:00] VITALS: BP 159/76
[2020-02-18 04:14] LABS: HEMATOCRIT 41.5 % (37.0-47.0); HEMOGLOBIN 14.1 gm/dL (12.0-15.0); MCH 31.9 pg (26.0-34.0); MPV 10.1 fl. (7.2-11.1); RBC 4.41 mil/uL (4.20-5.00); RDW-CV 14.1 % (10.5-14.5); WBC 13.7 thou/uL (4.0-11.0)
[2020-02-18 04:36] LABS: CALCIUM 8.1 mg/dL (8.5-10.1); CREATININE 1.7 mg/dL (0.6-1.3); MAGNESIUM 1.9 mg/dL (1.8-2.4); POTASSIUM 4.8 mmol/L (3.5-5.1)
[2020-02-18 07:15] VITALS: BP 154/67
[2020-02-18 13:01] VITALS: BP 137/61
[2020-02-18 16:45] VITALS: BP 165/68
[2020-02-18 20:00] VITALS: BP 125/71
[2020-02-19] VITALS (7 sets, daily range): BP systolic 113–165; BP diastolic 50–68
[2020-02-19 04:32] LABS: HEMATOCRIT 40.5 % (37.0-47.0); HEMOGLOBIN 13.8 gm/dL (12.0-15.0); MCV 94.1 fL (80.0-100.0); NUCLEATED RBCS 0 /100WBC; PLATELET COUNT* 93 thou/uL (150-400); RDW-CV 14.1 % (10.5-14.5); WBC 8.7 thou/uL (4.0-11.0)
[2020-02-19 05:09] LABS: CALCIUM 7.9 mg/dL (8.5-10.1); CREATININE 1.4 mg/dL (0.6-1.3); MAGNESIUM 1.9 mg/dL (1.8-2.4); POTASSIUM 4.3 mmol/L (3.5-5.1); TOTAL BILIRUBIN 0.2 mg/dL (<0.1-1.0)
[2020-02-19 06:22] LABS: ABSOLUTE LYMPHOCYTES 0.2 thou/uL (0.8-5.3); ABSOLUTE MONOCYTES 0.3 thou/uL (0.0-1.2); ABSOLUTE NEUTROPHILS 8.3 thou/uL (1.6-8.1); PLATELET ESTIMATE DECREASED
--- NOTE | 2020-02-19 13:24 | 2DMMODE ---
[place] [address] 2 D/M-MODE ECHOCARDIOGRAM Name: MAULIK HIRSCH Room: [address] IN [facility]#: [id number] Admission: 02/16/20 Attend Phys: Olegario Smith, Discharge: Date of : 54 Date of Service: 02/19/20 1324 Report #: [id number] THIS REPORT FOR: cc: Esteban Penaloza Russell J. DO Liston, Michael J. MD [facility] ~ APPROVED REPORT Study performed: 02/19/2020 11:11:27 EXAM: Comprehensive 2D, Doppler, and color-flow Echocardiogram Patient Location: In-Patient Room #: 224 Status: routine BSA: 1.72 HR: 72 bpm BP: 151/52 mmHg Rhythm: NSR Other Information Study Quality: Good Indications Dyspnea 2D Dimensions IVSd: 10.41 (7-11mm) LVOT Diam: 20.26 (18-24mm) LVDd: 49.42 mm PWd: 10.57 (7-11mm) Ascending Ao: 26.00 (22-36mm) LVDs: 29.30 (25-40mm) Aortic Root: 28.72 mm Volumes Left Atrial Volume (Systole) LA ESV Index: 28.80 mL/m2 Aortic Valve AoV Peak Robbin.: 2.26 m/s AO Peak Gr.: 20.45 mmHg LVOT Max P.03 mmHg AO Mean Gr.: 11.04 mmHg LVOT Mean P.97 mmHg LVOT Max V: 1.33 m/s AO V2 VTI: 44.41 cm LVOT Mean V: 0.78 m/s MICHAEL (VTI): 1.86 cm2 LVOT V1 VTI: 25.59 cm AI Elliott: 3.11 m/s2 [place] [address] 2 D/M-MODE ECHOCARDIOGRAM Name: MAULIK HIRSCH Room: [address] IN .R.#: [id number] Admission: 02/16/20 Attend Phys: Olegario Smith, Discharge: Date of : 54 Date of Service: 02/19/20 1324 Report #: [id number] AI PHT: 385.36 ms Mitral Valve E/A Ratio: 0.91 MV Decel. Time: 210.80 ms MV E Max Robbin.: 1.00 m/s MV PHT: 61.13 ms MVA (PHT): 3.60 cm2 TDI E/Lateral E': 14.29 E/Medial E': 14.29 Medial E' Robbin.: 0.07 m/s Lateral E' Robbin.: 0.07 m/s Pulmonary Valve PV Peak Robbin.: 0.90 m/s PV Peak Gr.: 3.27 mmHg Left Ventricle The left ventricle is normal size. There is normal LV segmental wall motion. There is normal left ventricular wall thickness. Left ventricular systolic function is normal. LVEF is 55-60%. Grade I - abnormal relaxation pattern. Right Ventricle The right ventricle is normal size. The right ventricular systolic function is normal. Pacemaker lead is present in the right ventricle. Atria The left atrium size is normal. The right atrium size is normal. Aortic Valve Mild aortic valve sclerosis. Moderate aortic regurgitation. Mild aortic stenosis. Mitral Valve The mitral valve is normal in structure. Mild mitral regurgitation. No evidence of mitral valve stenosis. Tricuspid Valve The tricuspid valve is normal in structure. Unable to assess PA pressure. Trace tricuspid regurgitation. Pulmonic Valve The pulmonary valve is normal in structure. There is no [place]mon[place] [address] 2 D/M-MODE ECHOCARDIOGRAM Name: RAYMON HIRSCHRICIA Ariana Room: [address] IN [facility]#: [id number] Admission: 02/16/20 Attend Phys: Olegario Smith, Discharge: Date of : 54 Date of Service: 02/19/20 1324 Report #: [id number] Great Vessels The aortic root is normal in size. IVC is normal in size and collapses >50% with inspiration. Pericardium There is no pericardial effusion. <Conclusion> The left ventricle is normal size. There is normal left ventricular wall thickness. Left ventricular systolic function is normal. LVEF is 55-60%. Grade I - abnormal relaxation pattern. There is normal LV segmental wall motion. Pacemaker lead is present in the right ventricle. Mild aortic valve sclerosis. Moderate aortic regurgitation. Mild aortic stenosis. Mild mitral regurgitation. Trace tricuspid regurgitation. IVC is normal in size and collapses >50% with inspiration. <ELECTRONICALLY SIGNED> By: Jorge Mcclelland MD, FACC 02/19/20 1324 1324 1324 Jorge Mcclelland MD, FACC /INF
[2020-02-20] VITALS: BP 141/60
[2020-02-20 04:00] VITALS: BP 167/72
[2020-02-20 05:20] LABS: HEMATOCRIT 41.6 % (37.0-47.0); HEMOGLOBIN 14.2 gm/dL (12.0-15.0); MCH 31.8 pg (26.0-34.0); MCV 93.5 fL (80.0-100.0); MPV 10.3 fl. (7.2-11.1); RBC 4.45 mil/uL (4.20-5.00); RDW-CV 14.1 % (10.5-14.5); WBC 9.2 thou/uL (4.0-11.0)
[2020-02-20 05:40] LABS: CALCIUM 7.8 mg/dL (8.5-10.1); CREATININE 1.1 mg/dL (0.6-1.3); MAGNESIUM 1.8 mg/dL (1.8-2.4); POTASSIUM 4.5 mmol/L (3.5-5.1)
[2020-02-20 08:00] VITALS: BP 142/76
[2020-02-20] MEDS ORDERED: BUDESONIDE0.5 MG/2 M NEB (09:29)
[2020-02-20] MEDS ORDERED: CEFDINIR300 MG PO (09:29)
[2020-02-20] MEDS ORDERED: IPRAT-ALBUT 0.5-3 ML INH (09:29)
[2020-02-20] MEDS ORDERED: PREDNISONE 10 M10 MG PO (09:29)
[2020-02-20] MEDS ORDERED: BROVANA15 MCG/2 M INH (09:29)
[2020-02-20 11:01] VITALS: BP 142/76
[2020-02-20 11:13] VITALS: BP 142/76
--- NOTE | 2020-02-25 08:52 | CON ---
[address] [address] CONSULTATION Name: MAULIK HIRSCH Room: [address] IN .R.#: [id number] Admission: 02/16/20 Attend Phys: Olegario Smith MD Discharge: 02/20/20 Date of : 54 Report #: [id number] THIS REPORT FOR: //name// cc: Esteban Penaloza Russell J. DO ~ THIS REPORT FOR: //name// CC: Olegario Penaloza DATE OF SERVICE: 02/18/2020 REQUESTING PHYSICIAN: Hodan Osorio MD. INDICATION FOR CONSULTATION: Shortness of breath. HISTORY OF PRESENT ILLNESS: A 69-year-old female with past medical history includes a history of COPD. The patient is not on supplemental oxygen at home. Her baseline creatinine is 1.0. She does have an AICD in place. Left ventricular ejection fraction has been reduced in previous echos up to 45% of the last echo, there is a history of paroxysmal atrial fibrillation. She, however, is not on anticoagulation at home. The patient is now admitted 2 days ago presentation was with increase in shortness of breath. The patient also had a cough with no sputum and she did not have chest pain, did not have upper respiratory complaints, did not have fever or chills. There is no swelling of lower extremities or calf pain. The patient on arrival, did have a chest x-ray performed, which is interstitial infiltrates consistent with acute pulmonary edema. The patient since then has been diuresed, I just repeated a chest x-ray now. It shows resolution of these interstitial infiltrates; however, there is a radiopaque density consistent with an infiltrate persisting at the left lung base. The patient reports ongoing shortness of breath as well as reports that her shortness of breath is better than when she was admitted. She has had some leg pain as well; however, she reports that this is also better. REVIEW OF SYSTEMS. The patient answered to the negative for 12 questions for review of systems except as mentioned above. PAST MEDICAL HISTORY: Left lower lobe carcinoma of the lung treated previously with CyberKnife therapy, COPD, not on supplemental oxygen at home, congestive heart failure, left ventricular ejection fractions are variable, at one point down to 30-35%, last recorded at 45%. Her right heart pressures are not elevated. Baseline creatinine from 2018 is normal at 1.0. Prolonged QT syndrome, torsades, aortic insufficiency, syncopal episodes, the patient had a fall after which she was taken off anticoagulation. [place] [address] CONSULTATION Name: MAULIK HIRSCH Room: [address] IN M.R.#: [id number] Admission: 02/16/20 Attend Phys: Olegario Smith MD Discharge: 02/20/20 Date of : 54 Report #: [id number] paroxysmal atrial fibrillation, pacemaker placement/defibrillator placement, seizures, lower extremity cellulitis, back pain, leg pain, spinal fusion, tonsillectomy, , cholecystectomy, left shoulder surgery x 3. SOCIAL HISTORY: Extensive history of smoking more than a pack a day, discontinued several years ago, but smoked for several decades. No known history of heavy alcohol use or illegal drug use. CURRENT MEDICATIONS: List in [facility] reviewed. HOME MEDICATIONS: List also in [facility] reviewed. ALLERGIES: SULFONAMIDE ANTIBIOTICS, ASPIRIN, IMITREX AND METHADONE ARE MENTIONED ALLERGIES. PHYSICAL EXAMINATION: GENERAL: She is alert, awake and oriented, does not appear to be in any distress at this time. VITAL SIGNS: Has a pulse of 80 and a blood pressure elevated to 165/68. She is on 1 liter nasal cannula. She is saturating in the mid 90s. Respiratory rate is 18. She does not appear to be in any distress. She is afebrile with a temperature of 36.5. HEENT: Head is normocephalic and atraumatic. Pupils are equal and reactive. There is no throat erythema. NECK: Does not show raised JVP, asymmetry, mass or lymph nodes. CHEST: Symmetrical expansion on inspection and palpation. On auscultation, breath sounds are bilaterally equal but decreased. There are rales at the left lung base. HEART: Regular. There is no murmur. ABDOMEN: Soft and nontender. EXTREMITIES: Lower extremities show no edema. There is no calf tenderness, there are some varicose veins noted. There is some chronic venous changes. SKIN: However, is dry and intact. NEUROLOGICAL: Moves all extremities bilaterally equally and spontaneously with no focal deficit identified. LABORATORY DATA: The patient's chest x-rays were reviewed. There is an infiltrate in the left lower lobe. This is where she had a malignancy previously. On the initial chest x-ray there is pulmonary edema, which has resolved now. Had venous Dopplers performed, these are negative. I also had a renal ultrasound performed, which was unremarkable. The patient's lab work, which does show creatinine elevated to 1.7, baseline creatinine is 1.0 in [facility] reviewed. CBC in [facility] reviewed. Coagulation studies in [facility] reviewed. COVID-19 antigen was negative. ASSESSMENT/PLAN: [address] [address] CONSULTATION Name: MAULIK HIRSCH Room: [address]#: [id number] Admission: 02/16/20 Attend Phys: Olegario Smith MD Discharge: 02/20/20 Date of : 54 Report #: [id number] 1. Shortness of breath. The patient has a chronic obstructive pulmonary disease exacerbation. Also on the initial chest x-ray she has acute pulmonary edema, which has now resolved, these are the primary etiologies of her shortness of breath. The patient also does have a left lower lobe infiltrate. 2. Chronic obstructive pulmonary disease exacerbation. Agree with Solu-Medrol as well as nebulized bronchodilators as currently prescribed. I agree with adding budesonide and Brovana. 3. Acute pulmonary edema/acute renal insufficiency. The patient's creatinine was 1.0 in 2018, I do not have a more recent creatinine available. Findings of pulmonary edema, appears to have resolved on the new chest x-ray today, but were present on admission as to why the patient developed fluid overload is not fully defined at this time. I did order an echocardiogram. The patient does appear to need more Lasix; however, considering her creatinine is elevated beyond her baseline I discontinued the scheduled Lasix previously ordered. We will plan to reevaluate tomorrow and then consider ordering more Lasix. 4. Left lower lobe infiltrate/carcinoma lung. The patient has previously had a malignancy in the left lower lobe. The radiopaque density there now does look much more larger, there is suspicion of superimposed pneumonia. The patient currently is on azithromycin as well as ceftriaxone. I ordered a CT chest for tomorrow morning to evaluate further considering the patient has had a prolonged QT interval as well as torsades in the past, I decided to discontinue azithromycin. She has already received 3 doses, which may be sufficient to provide atypical coverage. We will continue with ceftriaxone. We will reassess as to whether atypical coverage is needed to be continued if so, we will consider doxycycline. 5. History of atrial fibrillation. The patient is noted to not be on anticoagulation secondary to a fall in the past. She is also reported to have had syncopal episodes. 6. Jknay-yr-[id number] systolic congestive heart failure. 7. Suspected obstructive sleep apnea. Recommend an outpatient sleep study. 8. Deep vein thrombosis prophylaxis. She is on Lovenox. Thanks for this consultation. <ELECTRONICALLY SIGNED> By: Cruz Blunt MD 02/25/20 0852 1700 1755Azbigniew Blunt MD /nt
== END 2020-02-20 13:00 | disposition home health service (06) | DRG 177 ==
LOC: M.ERS 23:43 → M.TBA-ER 02-16 00:33 → M.2W 02-16 00:33
PROVIDERS: Family Medicine; Internal Medicine; Internal Medicine Critical Care Medicine; ADMIT Internal Medicine; ATTEND Internal Medicine
PROC: 5A09357 Assistance with Respiratory Ventilation, Less than 24 Consecutive Hours, Continuous Positive Airway Pressure (ICD-10-PCS; principal; 2020-02-16)
DX: J15.6 Pneumonia due to other Gram-negative bacteria (principal); J96.01 Acute respiratory failure with hypoxia; I50.43 Acute on chronic combined systolic (congestive) and diastolic (congestive) heart failure; J44.0 Chronic obstructive pulmonary disease with (acute) lower respiratory infection; I42.9 Cardiomyopathy, unspecified; J44.1 Chronic obstructive pulmonary disease with (acute) exacerbation; F17.210 Nicotine dependence, cigarettes, uncomplicated; I48.0 Paroxysmal atrial fibrillation; R91.1 Solitary pulmonary nodule; Z20.828 Contact with and (suspected) exposure to other viral communicable diseases; N28.9 Disorder of kidney and ureter, unspecified; I35.1 Nonrheumatic aortic (valve) insufficiency; Z79.899 Other long term (current) drug therapy; Z88.1 Allergy status to other antibiotic agents; Z88.2 Allergy status to sulfonamides; Z85.118 Personal history of other malignant neoplasm of bronchus and lung; Z90.49 Acquired absence of other specified parts of digestive tract; Z88.8 Allergy status to other drugs, medicaments and biological substances; Z86.73 Personal history of transient ischemic attack (TIA), and cerebral infarction without residual deficits

== ENCOUNTER → 2020-03-25 | Outpatient (CLI) | payer OTHER ==
[~2020-03-25] VITALS: Ht 162.6 cm; Wt 63.0 kg
[~2020-03-25] MED LIST changes: +BROVANA15 MCG/2 M INH; +BUDESONIDE0.5 MG/2 M NEB; +CEFDINIR300 MG PO; +IPRAT-ALBUT 0.5-3 ML INH
[2020-03-25 10:17] LABS: HEMATOCRIT 41.3 % (37.0-47.0); HEMOGLOBIN 13.8 gm/dL (12.0-15.0); MCH 31.5 pg (26.0-34.0); MCHC 33.4 g/dL (28.0-37.0); MCV 94.4 fL (80.0-100.0); MPV 9.7 fl. (7.2-11.1); RBC 4.38 mil/uL (4.20-5.00); RDW-CV 14.4 % (10.5-14.5); WBC 10.1 thou/uL (4.0-11.0)
[2020-03-25 11:47] VITALS: BP 124/84
[2020-03-25 11:50] VITALS: BP 142/70
[2020-03-25 12:05] VITALS: BP 137/68
[2020-03-25 12:20] VITALS: BP 112/72
--- NOTE | 2020-03-25 16:00 | EKG ---
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1950 Requested By: Jorge Mcclelland Order Number: [id number] Reading MD: Donald Lopez Measurements Intervals [place] Rate: 68 P: 57 [place]: 183 QRS: 44 QRSD: 89 T: 85 QT: 445 QTc: 474 Interpretive Statements Sinus rhythm Minimal ST elevation, anterior leads probably normal variant Compared to ECG 02/15/2020 23:48:44 Sinus tachycardia no longer present ST (T wave) deviation still present Electronically Signed On 03-25-2020 16:00:40 CDT by Donald Lopez [email or web address] <ELECTRONICALLY SIGNED> By: Donald Lopez MD, FACC 03/25/20 1600 121 121 Donald Lopez MD, [facility] /EPI
--- NOTE | 2020-04-01 14:02 | CARD ---
[address] [address] CARDIAC CATH REPORT Name: MAULIK HIRSCH Room: [facility]#: [id number] Admission: 03/25/20 Attend Phys: Jorge Mcclelland MD Discharge: Date of : 54 Report #: [id number] THIS REPORT FOR: //name// cc: Kel Iglesias MD, Stephen MD ~ APPROVED REPORT Study performed: 03/25/2020 10:08:56 Patient Status: Out-Patient Room #: Event Personnel: Jorge Mcclelland Director Of Market Analysis, Delisa Carpio RN RN, Teo Rudd RTR Scrub, Nichole Alonzo RTR Monitor Exam: Generator Change for a Dual Chamber ICD The patient is a 69 year-old female with a history of . Conscious Sedation Start time: 10:45 End Time: 11:09 Fentanyl 25 mcg Versed 1 mg Implanted Devices: Ilivia 7 DR-T Dual chamber ICD Generator Procedure The patient underwent informed consent. We discussed the details of the procedure including the risks, which include, but not limited to bleeding, infection, vascular damage, cardiac perforation, and pneumothorax. She understood these risks and was willing to proceed. As such, she was brought to the EP/Cardiac Catheterization laboratory in a fasting and sedated state and prepped and draped in a The patient underwent conscious sedation, with no related complications. The patient was brought to the EP/Cardiac Catheterization laboratory and the left chest and shoulder were prepped and draped in a sterile manner. The left subclavian region was infiltrated with 2% Lidocaine with Epinephrine subcutaneous anesthesia. A transverse incision was made in the left upper chest cavity. Capturing and sensing thresholds were verified. Electrode Parameters P Wave: 1.4 mV R Wave: 19.0 mV Atrial Threshold: 0.8 V at 0.40 ms Ventricular Threshold: 0.8 V at 0.40 ms Atrial Resistance: 450 ohms Ventricular Resistance: [address] [place] [address] CARDIAC CATH REPORT Name: MAULIK HIRSCH Room: [facility]#: [id number] Admission: 03/25/20 Attend Phys: Jorge Mcclelland MD Discharge: Date of : 54 Report #: [id number] Generator Change The generator change was then secured using 0 silk sutures. The subcutaneous pocket was irrigated with Ancef 1 gram antibiotic solution.The lead was attached to the appropriate receptacle on the new pulse generator and setscrews firmly tightened to insure adequate contact and stability. The lead and pulse generator were placed into the subcutaneous pocket. Sharp and sponge counts were confirmed to be correct. At this time the pocket was closed subcutaneously with a 2.0 Vicryl and the skin was closed with a 4.0 Vicryl. The operative site was dressed in sterile fashion with benzoin spray, steri strips, telfa, and tegaderm and the patient was transferred to the floor in stable condition. Complications The patient tolerated the procedure well and there were no complications associated with the procedure. Findings Specimens Removed: Yes old generator Estimated Blood Loss: less than 5 ml Conclusion 1. Dual-chamber pacing ICD generator at elective replacement. 2. Dual-chamber pacing ICD generator replaced without complication. Recommendations 1. Follow-up site check in 1 week. 2. Follow-up device interrogation in 1 to 2 months. <ELECTRONICALLY SIGNED> By: Jorge Mcclelland MD, FACC 04/01/20 1402 140 1402Michaepelon Mcclelland MD, FACC /INF
== END ==
LOC: M.CL 09:35
PROVIDERS: ATTEND Internal Medicine Cardiovascular Disease
DX: I45.81 Long QT syndrome (principal); I42.0 Dilated cardiomyopathy; C34.90 Malignant neoplasm of unspecified part of unspecified bronchus or lung; I11.0 Hypertensive heart disease with heart failure; I50.9 Heart failure, unspecified; J44.9 Chronic obstructive pulmonary disease, unspecified; Z79.899 Other long term (current) drug therapy; Z90.49 Acquired absence of other specified parts of digestive tract; Z98.890 Other specified postprocedural states; Z87.891 Personal history of nicotine dependence; Z95.810 Presence of automatic (implantable) cardiac defibrillator

== ENCOUNTER → 2020-04-02 | Outpatient (CLI) | payer OTHER | LOC: M.RAD 11:00 | PROVIDERS: ATTEND Internal Medicine Cardiovascular Disease | DX: I25.10 Atherosclerotic heart disease of native coronary artery without angina pectoris (principal); Z95.810 Presence of automatic (implantable) cardiac defibrillator ==

== ENCOUNTER → 2020-05-01 | Outpatient (CLI) | payer OTHER ==
[2020-05-01 15:51] LABS: ABSOLUTE LYMPHOCYTES 2.9 thou/uL (0.8-5.3); ABSOLUTE MONOCYTES 0.7 thou/uL (0.0-1.2); ABSOLUTE NEUTROPHILS 6.4 thou/uL (1.6-8.1); BASOPHILS 0.3 %; HEMATOCRIT 40.9 % (37.0-47.0); HEMOGLOBIN 13.5 gm/dL (12.0-15.0); LYMPHOCYTES 29.3 %; MCH 31.8 pg (26.0-34.0); MCHC 33.1 g/dL (28.0-37.0); MCV 96.2 fL (80.0-100.0); MONOCYTES 6.6 %; MPV 11.1 fl. (7.2-11.1); NUCLEATED RBCS 0 /100WBC; PLATELET COUNT* 152 thou/uL (150-400); POLYS 63.8 %; RBC 4.25 mil/uL (4.20-5.00); RDW-CV 14.6 % (10.5-14.5); WBC 10.1 thou/uL (4.0-11.0)
[2020-05-01 16:00] LABS: ALBUMIN 3.7 g/dL (3.4-5.0); CALCIUM 8.5 mg/dL (8.5-10.1); CREATININE 1.1 mg/dL (0.6-1.3); MAGNESIUM 2.2 mg/dL (1.8-2.4); POTASSIUM 4.6 mmol/L (3.5-5.1); TOTAL BILIRUBIN 0.2 mg/dL (<0.1-1.0); TOTAL PROTEIN 7.2 g/dL (6.4-8.2)
== END ==
LOC: M.LAB 15:29
PROVIDERS: ATTEND Internal Medicine Critical Care Medicine
DX: J44.9 Chronic obstructive pulmonary disease, unspecified (principal); R60.0 Localized edema; I10 Essential (primary) hypertension; E87.79 Other fluid overload; I50.23 Acute on chronic systolic (congestive) heart failure

== ENCOUNTER 2020-08-23 18:37 | Inpatient (IN) | payer OTHER ==
[~2020-08-23] VITALS: Ht 162.6 cm; Wt 61.7 kg
[2020-08-23 18:38] VITALS: BP 228/72
--- NOTE | 2020-08-23 18:44 | NUR ---
PT INDICATES SHE IS FULL CODE BUT DOES NOT WANT TO BE INTUBATED
[2020-08-23 18:57] LABS: ABSOLUTE BASOPHILS 0.1 thou/uL (0.0-0.2); ABSOLUTE LYMPHOCYTES 6.5 thou/uL (0.8-5.3); ABSOLUTE MONOCYTES 0.8 thou/uL (0.0-1.2); ABSOLUTE NEUTROPHILS 7.6 thou/uL (1.6-8.1); BASOPHILS 0.8 %; HEMATOCRIT 47.1 % (37.0-47.0); HEMOGLOBIN 15.2 gm/dL (12.0-15.0); LYMPHOCYTES 43.4 %; MCH 31.1 pg (26.0-34.0); MCHC 32.2 g/dL (28.0-37.0); MCV 96.6 fL (80.0-100.0); MONOCYTES 5.1 %; MPV 10.9 fl. (7.2-11.1); NUCLEATED RBCS 0 /100WBC; PLATELET COUNT* 217 thou/uL (150-400); POLYS 50.7 %; RBC 4.88 mil/uL (4.20-5.00); RDW-CV 14.6 % (10.5-14.5); WBC 14.9 thou/uL (4.0-11.0)
[2020-08-23 19:05] LABS: CALCIUM 8.9 mg/dL (8.5-10.1); CREATININE 1.4 mg/dL (0.6-1.3); POTASSIUM 4.7 mmol/L (3.5-5.1)
[2020-08-23 19:09] LABS: APTT 22.2 Seconds (25.0-31.3); INR 0.9; PROTIME 10.1 Seconds (9.20-11.50)
[2020-08-23 19:16] LABS: ALBUMIN 3.6 g/dL (3.4-5.0); TOTAL BILIRUBIN 0.3 mg/dL (<0.1-1.0); TOTAL PROTEIN 7.7 g/dL (6.4-8.2)
[2020-08-23] MEDS ORDERED: COMPAZINE10 M2 PO (20:17)
[2020-08-23] MEDS ORDERED: LOPERAMIDE1 MG/7.5 M PO (20:18)
[2020-08-23] MEDS ORDERED: ZONEGRAN100 MG PO (20:19)
[2020-08-23] MEDS ORDERED: LASIX 40 MG TAB40 M2 PO (20:19)
[2020-08-23] MEDS ORDERED: AUGMENTIN125 MG/53 PO (20:20)
[2020-08-23] MEDS ORDERED: SEREVENT DISKU50 MCG INH (20:20)
[2020-08-23] MEDS ORDERED: AMLODIPINE-OLM1 EAC1 PO (20:21)
[2020-08-23] MEDS ORDERED: PROVENTIL HFA6.7 G1 INH (20:21)
[2020-08-23] MEDS ORDERED: OMEPRAZOLE40 MG PO (20:21)
[2020-08-23 21:04] LABS: BE -6.4 mmol/L (-2 to +3)
[2020-08-23 21:08] LABS: PCO2 50.7 mmHg (35.0-45.0); pH 7.241 (7.340-7.450)
[2020-08-23 21:09] LABS: PO2 129.8 mmHg (75.0-100.0)
[2020-08-23 21:30] VITALS: BP 128/60
[2020-08-23 21:40] VITALS: BP 122/64
[2020-08-24] VITALS (8 sets, daily range): BP systolic 114–157; BP diastolic 51–62
--- NOTE | 2020-08-24 01:07 | NUR ---
PT ADMIT TO ROOM 221 AT 2130. ALERT ORIENTED. ON BIPAP 16/, 16, 100% PT STATES FALL IN LAST 3 MONTHS. FALL RISK ARM BAND AND PRECAUTIONS IN PLACE. NPO AFTER MN. REQUEST IN TO DR SOUZA FOR PAIN MEDICATION, ROME IN PLACE.
[2020-08-24 09:41] LABS: URINE BILIRUBIN NEGATIVE (Negative); URINE BLOOD 2+ (Negative); URINE CLARITY CLEAR; URINE COLOR YELLOW; URINE GLUCOSE-RANDOM NEGATIVE (Negative); URINE KETONES NEGATIVE (Negative); URINE LEUKOCYTES-REFLEX 1+ (Negative); URINE NITRITE-REFLEX NEGATIVE (Negative); URINE PROTEIN NEGATIVE (Negative); URINE UROBILINOGEN 0.2 E.U./dl (0.2-1.0)
[2020-08-24 09:49] LABS: AMP/METHAMP Negative (Negative); BARBITURATES Negative (Negative); BENZODIAZEPINES Negative (Negative); COCAINE Negative (Negative); METHADONE Negative (Negative); OPIATES POSITIVE (Negative); PCP Negative (Negative); THC Negative (Negative)
[2020-08-24 09:55] LABS: BACTERIA-REFLEX 1-9 Few /HPF (None Seen); CASTS None Seen /LPF (None Seen); CRYSTALS None Seen /LPF (None Seen); MUCUS None Seen strn/LPF (None Seen); SQUAMOUS 0-3 Few /LPF (0-3); URINE RBC 3-10 Few /HPF (0-2); URINE WBC-REFLEX 0-5 Rare /HPF (0-5)
[2020-08-24] MEDS ORDERED: NEURONTIN100 MG PO (10:46)
[2020-08-24] MEDS ORDERED: SERTRALINE HCL100 MG PO (10:46)
[2020-08-24] MEDS ORDERED: NORVASC 2.5 MG2.5 M1 PO (12:29)
[2020-08-24 15:24] LABS: ABSOLUTE LYMPHOCYTES 1.1 thou/uL (0.8-5.3); ABSOLUTE MONOCYTES 0.8 thou/uL (0.0-1.2); ABSOLUTE NEUTROPHILS 10.1 thou/uL (1.6-8.1); BASOPHILS 0.4 %; HEMATOCRIT 37.5 % (37.0-47.0); LYMPHOCYTES 9.2 %; MCH 30.8 pg (26.0-34.0); MCV 93.1 fL (80.0-100.0); MONOCYTES 6.9 %; MPV 11.2 fl. (7.2-11.1); NUCLEATED RBCS 0 /100WBC; POLYS 83.5 %; RBC 4.03 mil/uL (4.20-5.00); RDW-CV 14.7 % (10.5-14.5); WBC 12.1 thou/uL (4.0-11.0)
[2020-08-24 15:28] LABS: HEMOGLOBIN 12.4 gm/dL (12.0-15.0); PLATELET COUNT* 86 thou/uL (150-400)
[2020-08-24 15:45] LABS: ALBUMIN 2.8 g/dL (3.4-5.0); ALKALINE PHOSPHATASE 127 U/L (46-116); ANION GAP 11 mmol/L (7-16); BUN 23 mg/dL (7-18); CALCIUM 7.7 mg/dL (8.5-10.1); CHLORIDE 103 mmol/L (98-107); CO2 24 mmol/L (21-32); CREATININE 1.4 mg/dL (0.6-1.3); GLUCOSE 174 mg/dL (70-99); POTASSIUM 4.2 mmol/L (3.5-5.1); SGOT 36 U/L (15-37); SGPT 40 U/L (30-65); SODIUM 138 mmol/L (136-145); TOTAL BILIRUBIN 0.4 mg/dL (<0.1-1.0); TOTAL PROTEIN 5.6 g/dL (6.4-8.2); TROPONIN-I LEVEL <0.06 ng/mL (<0.06)
--- NOTE | 2020-08-24 20:35 | NUR ---
PT REFUSING TO HAVE BED ALARM TURNED ON. PT EDUCATED CONCERNING PURPOSE OF BED ALARM, BUT STILL REFUSING.
[2020-08-25 03:05] LABS: GLYCOHEMOGLOBIN (HGB A1C) 6.2 % (4.8-5.6)
[2020-08-25 04:19] VITALS: BP 121/62
[2020-08-25 04:30] LABS: HEMATOCRIT 36.6 % (37.0-47.0); HEMOGLOBIN 12.1 gm/dL (12.0-15.0); MCH 30.7 pg (26.0-34.0); MPV 10.1 fl. (7.2-11.1); NUCLEATED RBCS 0 /100WBC; PLATELET COUNT* 148 thou/uL (150-400); RBC 3.93 mil/uL (4.20-5.00); RDW-CV 14.7 % (10.5-14.5); WBC 11.4 thou/uL (4.0-11.0)
[2020-08-25 04:41] LABS: ALBUMIN 2.8 g/dL (3.4-5.0); CALCIUM 8.2 mg/dL (8.5-10.1); CREATININE 1.2 mg/dL (0.6-1.3); POTASSIUM 3.9 mmol/L (3.5-5.1); TOTAL BILIRUBIN 0.4 mg/dL (<0.1-1.0); TOTAL PROTEIN 6.2 g/dL (6.4-8.2)
[2020-08-25 05:16] LABS: PREALBUMIN 21.6 mg/dL (18.0-35.7)
--- NOTE | 2020-08-25 05:25 | NUR ---
PT IS ABLE TO COMMUNICATE HER NEEDS TO STAFF EFFECTIVELY. CURRENT PAIN MEDICATION REGIMEN HAS BEEN ADEQUATE FOR CONTROLLING HER PAIN UP TO THIS TIME. MENTIONED IN AN EARLIER NOTE, SHE IS REFUSING THE BED ALARM. ROME HAS BEEN PATENT UP TO THIS TIME. CM REFERRAL FOR PT: SHE HAS AN RX FOR BROVANA BUT CANNOT AFFORD IT.
[2020-08-25 06:04] LABS: ABSOLUTE LYMPHOCYTES 0.3 thou/uL (0.8-5.3); ABSOLUTE MONOCYTES 0.2 thou/uL (0.0-1.2); ABSOLUTE NEUTROPHILS 10.8 thou/uL (1.6-8.1)
[2020-08-25 06:05] LABS: PLATELET ESTIMATE ADEQUATE
[2020-08-25 08:29] VITALS: BP 155/71
--- NOTE | 2020-08-25 10:23 | NUR ---
CM SPOKE TO THE PT TO DISCUSS CM ASSESSMENT. PT IS KNOWN TO THIS CM FROM PREVIOUS ADMISSION. PT IS A&O, AND NORMALLY INDEPENDENT WITH ADL'S. PT RESIDES AT HOME WITH SPOUSE AND HE DOES ALL COOKING, CLEANING, AND DRIVING FOR THE HOUSEHOLD. PT OWNS A WALKER AND A WHEELCHAIR, BUT DID NOT USE EITHER PRIOR TO ADMIT. PT INFORMS THAT SHE USES A HOME NEBULIZER, BUT DOES NOT HAVE HOME OXYGEN. PT IS CURRENTLY ON-SERVICE WITH [facility], AND PLANS TO RESUME HH SERVICES WITH [facility] AT D/C. CM WILL REMAIN AVAILABLE TO ASSIST AND FOLLOW FOR D/C PLANNING NEEDED. [facility]/ [facility] HH PHONE: [phone] FAX: [phone]
--- NOTE | 2020-08-25 11:00 | EKG ---
[place] [address] ELECTROCARDIOGRAM REPORT Name: MAULIK HIRSCH Room: [address] ADM IN .R.#: [id number] Admission: 08/23/20 Attend Phys: Robe Agrawal Discharge: Date of : 54 Date of Service: 08/23/20 1905 Report #: [id number] THIS REPORT FOR: //name// [facility] ED Test Date: 2020-08-23 Test Time: 19:05:09 Pat Name: MAULIK HIRSCH Department: Room: [facility] Gender: F Eyeglass Inspector: GENNY Starr : 1950 Requested By: Ze Rosenthal Order Number: [id number] MD: Floyd Thomas Measurements Intervals [place] Rate: 89 P: 31 RI: 189 QRS: 61 QRSD: 88 T: 74 QT: 389 QTc: 474 Interpretive Statements Sinus rhythm Consider anterior infarct Compared to ECG 03/25/2020 12:10:02 no change Electronically Signed On 08-25-2020 10:59:57 CDT by Floyd Thomas [email or web address] <ELECTRONICALLY SIGNED> By: Floyd Thomas MD, FAC 08/25/20 1059 1905 1905 Floyd Thomas MD, LOCATED WITHIN [facility] /EPI
[2020-08-25 16:00] VITALS: BP 149/66
[2020-08-25 16:26] VITALS: BP 132/56
--- NOTE | 2020-08-25 19:01 | NUR ---
PT RESTED T/O DAY C/O PAIN TO BACK,NECK AND LEGS MANAGED WITH ORAL MEDICATIONS SCHEDULED AND PRN.VSS ON 2L NC.APACED/SR ON MONITOR.NOTHING FURTHER.CLWR.WCTM
[2020-08-25 20:44] VITALS: BP 152/67
--- NOTE | 2020-08-25 20:53 | NUR ---
PT CONTINUES TO REFUSE THE BED ALARM; SHE HAS BEEN EDUCATED CONCERNING ITS PURPOSE ON SEVERAL OCCASIONS.
[2020-08-26 00:13] VITALS: BP 176/97
[2020-08-26 04:19] LABS: ABSOLUTE LYMPHOCYTES 0.6 thou/uL (0.8-5.3); ABSOLUTE MONOCYTES 0.6 thou/uL (0.0-1.2); ABSOLUTE NEUTROPHILS 10.9 thou/uL (1.6-8.1); HEMATOCRIT 36.7 % (37.0-47.0); HEMOGLOBIN 11.8 gm/dL (12.0-15.0); LYMPHOCYTES 5.2 %; MCH 30.4 pg (26.0-34.0); MCHC 32.1 g/dL (28.0-37.0); MCV 94.4 fL (80.0-100.0); MONOCYTES 4.6 %; MPV 11.2 fl. (7.2-11.1); NUCLEATED RBCS 0 /100WBC; PLATELET COUNT* 135 thou/uL (150-400); POLYS 90.2 %; RBC 3.88 mil/uL (4.20-5.00); RDW-CV 14.2 % (10.5-14.5); WBC 12.1 thou/uL (4.0-11.0)
[2020-08-26 04:25] LABS: ALBUMIN 2.7 g/dL (3.4-5.0); CALCIUM 8.3 mg/dL (8.5-10.1); CREATININE 1.2 mg/dL (0.6-1.3); POTASSIUM 3.6 mmol/L (3.5-5.1); TOTAL BILIRUBIN 0.3 mg/dL (<0.1-1.0); TOTAL PROTEIN 6.3 g/dL (6.4-8.2)
--- NOTE | 2020-08-26 05:52 | NUR ---
PT IS ABLE TO COMMUNICATE HER NEEDS TO STAFF EFFECTIVELY. CURRENT PAIN MEDICATION REGIMEN HAS BEEN ADEQUATE FOR CONTROLLING HER PAIN UP TO THIS TIME. PT DID WEAR HER BIPAP FOR APPROXIMATELY 3HRS OVERNIGHT. ROME HAS BEEN PATENT UP TO THIS TIME. MENTIONED IN AN EARLIER NOTE, SHE HAS REFUSED THE BED ALARM.
[2020-08-26 06:06] VITALS: BP 174/82
--- NOTE | 2020-08-26 07:15 | NUR ---
CHANGE OF SHIFT BEDSIDE REPORT GIVEN PATIENT SEEN AT BEDSIDE IN BED ASLEEP ASSUMED PATIENT CARE
[2020-08-26 08:00] VITALS: BP 157/79
[2020-08-26 12:00] VITALS: BP 156/59
--- NOTE | 2020-08-26 12:09 | NUR ---
Anticipate dc to home tomorrow. Pt may need home o2, will need ex ox at dc to determine if Pt qualifies. Per , Pt may also need bipap. CM to fax resumption orders to [facility] at [place]. [facility] f:[phone]
[2020-08-26 16:00] VITALS: BP 174/73
[2020-08-26 16:48] LABS: BE 0.2 mmol/L (-2 to +3); PCO2 37.7 mmHg (35.0-45.0); PO2 100.6 mmHg (75.0-100.0); pH 7.428 (7.340-7.450)
[2020-08-26 20:25] VITALS: BP 165/65
--- NOTE | 2020-08-26 21:15 | NUR ---
SPOKE WITH SLY ELLIOTT WHO WAS CONCERNED THAT MS HIRSCH HAD BEEN SMOKING IN HER ROOM. STATES THERE WAS STRONG ODOR OF TOBACCO SMOKE IN ROOM. SECURITY NOTIFIED AND SPOKE WITH PT. PT DENIED SMOKING AND REFUSED TO LET SECURITY LOOK THROUGH HER PURSE AND BELONGINGS. NO SMOKING POLICY REINFORCED WITH PATIENT, WHO CONTINUED TO DENY SMOKING IN HER ROOM. INSTRUCTED THAT IF CONCERNS ABOUT HER SMOKING IN HER ROOM PERSISTED, HER BELONGINGS WOULD BE SEARCHED DESPITE HER OBJECTIONS. PT ACKNOWLEDGED THAT SHE HAD BEEN NOTIFIED OF SUCH, AND CONTINUED TO DENY SMOKING IN ROOM. SECURITY AND I THEN LEFT THE ROOM.
[2020-08-27 00:02] VITALS: BP 169/77
--- NOTE | 2020-08-27 01:47 | NUR ---
PT ALERT ORIENTED. UPON ENTERING ROOM THIS RN NOTED STRONG SMELL OF CIGARETTES COMING FROM THE BATHROOM. SECURITY AND HOUSE SUPP NOTIFIED. PT TAKING HYDROCODONE FOR PAIN. TELEMETRY SHOWS SR. PT REFUSED BIPAP. RT NOTIFIED. WEARING NC 2 LITERS.
[2020-08-27 04:20] VITALS: BP 160/78
[2020-08-27 05:36] LABS: ALBUMIN 2.7 g/dL (3.4-5.0); CALCIUM 8.5 mg/dL (8.5-10.1); CREATININE 1.2 mg/dL (0.6-1.3); POTASSIUM 4.1 mmol/L (3.5-5.1); TOTAL BILIRUBIN 0.3 mg/dL (<0.1-1.0); TOTAL PROTEIN 6.1 g/dL (6.4-8.2)
[2020-08-27 05:40] LABS: ABSOLUTE LYMPHOCYTES 0.9 thou/uL (0.8-5.3); ABSOLUTE MONOCYTES 0.4 thou/uL (0.0-1.2); ABSOLUTE NEUTROPHILS 8.8 thou/uL (1.6-8.1); BASOPHILS 0.1 %; HEMOGLOBIN 12.1 gm/dL (12.0-15.0); LYMPHOCYTES 8.6 %; MCH 30.7 pg (26.0-34.0); MCHC 32.8 g/dL (28.0-37.0); MCV 93.8 fL (80.0-100.0); MONOCYTES 4.2 %; MPV 11.6 fl. (7.2-11.1); NUCLEATED RBCS 0 /100WBC; PLATELET COUNT* 100 thou/uL (150-400); POLYS 87.1 %; RBC 3.94 mil/uL (4.20-5.00); RDW-CV 14.4 % (10.5-14.5); WBC 10.1 thou/uL (4.0-11.0)
--- NOTE | 2020-08-27 06:51 | NUR ---
I WAS AGAIN CALLED TO MS HIRSCH' ROOM FOR SUSPECTED SMOKING. PT'S ROOM WAS THOROUGHLY SEARCHED AND MULTIPLE PACKS OF CIGARETTES AND LIGHTERS WERE CONFISCATED AND HELD IN 2 [facility] ROOM. PT CONTINUED TO DENY SMOKING DESPITE THE HEAVY STENCH OF CIGARETTE SMOKE, THE LIGHTERS AND CIGARETTES, AND NICOTINE STAINS ON HER CANNULA. DURING THE SEARCH OF HER PERSON BY A FEMALE TECH ON THE UNIT, PT BECAME ANGRY AND TOOK A SWING AT THE TECH. HER ARM WAS SUBDUED BY THE BOWLING PIN SETTERS INSTALLER STANDING BY. AFTER THOROUGH SEARCH, PT WAS PLACED IN A 1:1 WITH SITTER FOR PUBLIC SAFETY. SHE CONTINIUED TO DENY SMOKING, STATING THAT SHE HAD NO IDEA THAT THE CIGARETTES AND LIGHTERS WERE IN HER PURSE AND ON HER PERSON.
[2020-08-27 08:00] VITALS: BP 157/73
[2020-08-27] MEDS ORDERED: DOXYCYCLINE 10100 MG PO (11:36)
[2020-08-27] MEDS ORDERED: PREDNISONE 10 M10 MG PO (11:36)
[2020-08-27] MEDS ORDERED: PROTONIX40 M2 PO (11:36)
[2020-08-27 12:00] VITALS: BP 159/61
[2020-08-27 12:51] VITALS: BP 159/61
[2020-08-27 13:47] VITALS: BP 159/61
--- NOTE | 2020-08-27 14:21 | NUR ---
CM INFORMED DURING PRIME ROUNDING OF THE PLAN OF CARE FOR THE PT. PLAN FOR THE PT TO D/C HOME TODAY AND RESUME HH WITH [facility]. CM FAXED PT'S D/C ORDERS TO [facility]. PT HAD R.T. TESTING AND NEEDS 2L O2 WITH ACTIVITY AND NONE AT REST. CM FAXED R.T. TESTING AND ORDERS TO [facility] AND THEY WILL DELIVER OXYGEN SUPPLIES TO THE PT'S HOME. CM WILL REMAIN AVAILABLE TO ASSIST AND FOLLOW NEEDED. [facility] PHONE: [phone] FAX: [phone] [facility] PHONE: [phone]
--- NOTE | 2020-08-27 14:30 | NUR ---
RECEIVED REPORT. ASSUMED CARE OF PT AROUND 0730. AM ASSESSMENT AND VITALS COMPLETED CHARTED. MEDS PER EMAR. PT UPSET THIS AM WITH SITTER AND REFUSED TO ALLOW SITTER TO ACCOMPANY HER TO THE BATHROOM. PT CONTINUING TO DENY SMOKING IN HER ROOM. UPSET WITH SECURITY STAFF, STATING THEY WERE TOO ROUGH WITH HER. PT ADVOCATE NOTIFED. DISCHARGE ORDERS RECIEVED. DISCHARGE COMPELTED DOCUMENTED. PT AWARE TO APPOINTMENT SCHEDULER MEDS FROM HER PHARMACY. QUALIFIED FOR HOME O2. BROUGHT AN O2 TANK FOR PT TO DC WITH. HH ARRANGED. PT DID NOT QUALIFY FOR TRILOGY. IVS AND BIOMEDICAL EQUIPMENT TECHNICIAN REMOVED. ALL BELONGINGS GATHERED AND SENT OUT WITH PT. PT LEFT UNIT IN WC WITH NURSING STAF.. PT LEFT HOSPITAL IN CAR WITH .
== END 2020-08-27 14:30 | disposition home health service (06) | DRG 177 ==
LOC: M.ERS 18:37 → M.TBA-ER 18:54 → M.2W 18:54
PROVIDERS: Emergency Medicine; Family Medicine; Internal Medicine; Internal Medicine Pulmonary Disease; ADMIT Internal Medicine; ATTEND Internal Medicine
PROC: 5A09357 Assistance with Respiratory Ventilation, Less than 24 Consecutive Hours, Continuous Positive Airway Pressure (ICD-10-PCS; principal; 2020-08-23)
PROC: 5A09357 Assistance with Respiratory Ventilation, Less than 24 Consecutive Hours, Continuous Positive Airway Pressure (ICD-10-PCS; 2020-08-24)
PROC: 5A0935A Assistance with Respiratory Ventilation, Less than 24 Consecutive Hours, High Flow/Velocity Cannula (ICD-10-PCS; 2020-08-24)
PROC: 5A09357 Assistance with Respiratory Ventilation, Less than 24 Consecutive Hours, Continuous Positive Airway Pressure (ICD-10-PCS; 2020-08-25)
PROC: 5A09357 Assistance with Respiratory Ventilation, Less than 24 Consecutive Hours, Continuous Positive Airway Pressure (ICD-10-PCS; 2020-08-27)
DX: J15.6 Pneumonia due to other Gram-negative bacteria (principal); J96.01 Acute respiratory failure with hypoxia; J96.22 Acute and chronic respiratory failure with hypercapnia; I50.33 Acute on chronic diastolic (congestive) heart failure; J44.0 Chronic obstructive pulmonary disease with (acute) lower respiratory infection; I42.9 Cardiomyopathy, unspecified; J44.1 Chronic obstructive pulmonary disease with (acute) exacerbation; G40.909 Epilepsy, unspecified, not intractable, without status epilepticus; I48.0 Paroxysmal atrial fibrillation; M54.9 Dorsalgia, unspecified; R73.03 Prediabetes; G89.29 Other chronic pain; M19.90 Unspecified osteoarthritis, unspecified site; Z20.822 Contact with and (suspected) exposure to COVID-19; Z95.810 Presence of automatic (implantable) cardiac defibrillator; Z85.118 Personal history of other malignant neoplasm of bronchus and lung; Z90.49 Acquired absence of other specified parts of digestive tract; Z98.891 History of uterine scar from previous surgery; Z88.2 Allergy status to sulfonamides; Z88.8 Allergy status to other drugs, medicaments and biological substances; Z79.899 Other long term (current) drug therapy; Z87.891 Personal history of nicotine dependence; Z92.3 Personal history of irradiation

== ENCOUNTER 2020-09-27 14:14 | Observation (INO) | payer OTHER ==
[~2020-09-27] VITALS: Ht 162.6 cm; Wt 65.8 kg
[~2020-09-27 14:14] MED LIST changes: +AMLODIPINE-OLM1 EAC1 PO; +AUGMENTIN125 MG/53 PO; +COMPAZINE10 M2 PO; +DOXYCYCLINE 10100 MG PO; +LASIX 40 MG TAB40 M2 PO; +LOPERAMIDE1 MG/7.5 M PO; +NEURONTIN100 MG PO; +NORVASC 2.5 MG2.5 M1 PO; +OMEPRAZOLE40 MG PO; +PROVENTIL HFA6.7 G1 INH; +SEREVENT DISKU50 MCG INH; +SERTRALINE HCL100 MG PO; +ZONEGRAN100 MG PO
[2020-09-27 14:19] VITALS: BP 148/63
[2020-09-27 15:17] LABS: URINE BILIRUBIN NEGATIVE (Negative); URINE BLOOD TRACE (Negative); URINE CLARITY CLEAR; URINE COLOR YELLOW; URINE GLUCOSE-RANDOM NEGATIVE (Negative); URINE KETONES NEGATIVE (Negative); URINE LEUKOCYTES NEGATIVE (Negative); URINE NITRITE NEGATIVE (Negative); URINE PROTEIN 1+ (Negative); URINE SPECIFIC GRAVITY >= 1.030 (1.005-1.030); URINE UROBILINOGEN 0.2 E.U./dl (0.2-1.0)
[2020-09-27 15:24] LABS: CALCIUM 8.5 mg/dL (8.5-10.1); CREATININE 1.3 mg/dL (0.6-1.3); POTASSIUM 4.8 mmol/L (3.5-5.1)
[2020-09-27 15:29] LABS: ALBUMIN 3.8 g/dL (3.4-5.0); TOTAL BILIRUBIN 0.4 mg/dL (<0.1-1.0); TOTAL PROTEIN 6.9 g/dL (6.4-8.2)
[2020-09-27 15:37] LABS: ABSOLUTE LYMPHOCYTES 1.6 thou/uL (0.8-5.3); ABSOLUTE MONOCYTES 0.8 thou/uL (0.0-1.2); ABSOLUTE NEUTROPHILS 8.9 thou/uL (1.6-8.1); BASOPHILS 0.3 %; HEMATOCRIT 36.4 % (37.0-47.0); HEMOGLOBIN 11.9 gm/dL (12.0-15.0); MCH 30.7 pg (26.0-34.0); MCHC 32.8 g/dL (28.0-37.0); MCV 93.5 fL (80.0-100.0); MPV 10.4 fl. (7.2-11.1); NUCLEATED RBCS 0 /100WBC; POLYS 78.7 %; RBC 3.89 mil/uL (4.20-5.00); RDW-CV 15.3 % (10.5-14.5); WBC 11.3 thou/uL (4.0-11.0)
[2020-09-27 15:38] LABS: PLATELET COUNT* 117 thou/uL (150-400)
[2020-09-27 17:10] VITALS: BP 144/52
[2020-09-27 17:30] VITALS: BP 146/61
[2020-09-27 20:49] VITALS: BP 130/56
[2020-09-28] VITALS (7 sets, daily range): BP systolic 117–138; BP diastolic 49–58
[2020-09-28 03:43] LABS: ABSOLUTE LYMPHOCYTES 0.7 thou/uL (0.8-5.3); ABSOLUTE MONOCYTES 0.1 thou/uL (0.0-1.2); ABSOLUTE NEUTROPHILS 6.6 thou/uL (1.6-8.1); BASOPHILS 0.4 %; HEMATOCRIT 36.1 % (37.0-47.0); HEMOGLOBIN 11.9 gm/dL (12.0-15.0); LYMPHOCYTES 9.3 %; MCH 31.1 pg (26.0-34.0); MCHC 32.9 g/dL (28.0-37.0); MCV 94.4 fL (80.0-100.0); MONOCYTES 0.9 %; NUCLEATED RBCS 0 /100WBC; PLATELET COUNT* 94 thou/uL (150-400); POLYS 89.4 %; RBC 3.82 mil/uL (4.20-5.00); RDW-CV 15.4 % (10.5-14.5); WBC 7.3 thou/uL (4.0-11.0)
[2020-09-28 04:36] LABS: ALBUMIN 3.4 g/dL (3.4-5.0); ALKALINE PHOSPHATASE 175 U/L (46-116); ANION GAP 11 mmol/L (7-16); BUN 23 mg/dL (7-18); CHLORIDE 100 mmol/L (98-107); CO2 21 mmol/L (21-32); CREATININE 1.2 mg/dL (0.6-1.3); GLUCOSE 190 mg/dL (70-99); POTASSIUM 4.8 mmol/L (3.5-5.1); SGOT 13 U/L (15-37); SGPT 15 U/L (30-65); SODIUM 132 mmol/L (136-145); TOTAL BILIRUBIN 0.4 mg/dL (<0.1-1.0); TROPONIN-I LEVEL <0.06 ng/mL (<0.06)
--- NOTE | 2020-09-28 10:45 | CON ---
[facility] [address] [place] [address] CONSULTATION Name: MAULIK HIRSCH Room: [address] MMarcus#: [id number] Admission: 09/27/20 Attend Phys: Bowen Reyes Discharge: Date of : 54 Report #: [id number] THIS REPORT FOR: cc: Kel Iglesias MD,Tyesha Schreiber MD, DO ~ DATE OF SERVICE: 09/28/2020 NEUROLOGY CONSULT HISTORY OF PRESENT ILLNESS: The patient is a 70-year-old female who was sitting on her bed, about to start a breathing treatment when she lost consciousness. The patient did not hit her head. According to the patient, her found her slumped over on the bed and helped lower her to the floor. There were no tonic-clonic movements of the extremities. There was no loss of bowel or bladder function. She did not bite her tongue. The patient states that she has never had an event like this in the past. The patient denies smoking. She does not take an aspirin a day. She does not drink alcohol or do any type of illicit drugs. PAST MEDICAL HISTORY: COPD, congestive heart failure, cardiomyopathy, history of cardiac dysrhythmia, lung cancer. PAST SURGICAL HISTORY: Pacemaker, laminectomy, tonsillectomy, section, cholecystectomy, shoulder surgery x 3. MEDICATIONS AT HOME: Omeprazole daily, Soma q.i.d., metoprolol 100 mg b.i.d., hydrocodone p.r.n., Cozaar 50 mg b.i.d., potassium 20 mEq p.r.n., furosemide 40 mEq p.r.n., albuterol daily, gabapentin 200 mg b.i.d., sertraline 50 mg daily, amlodipine 2.5 mg daily, zonisamide 100 mg daily. PHYSICAL EXAMINATION: VITAL SIGNS: Temperature 36.5, pulse rate 67, respiratory rate 17, blood pressure 124/49, bedside pulse oximetry 98% on 2 liters. NEUROLOGIC: Cranial nerves 2-12 are grossly intact. Motor exam demonstrates symmetrical strength in all 4 extremities with tone and bulk normal. Reflexes are symmetrical throughout. There is no patellar reflex in the right knee. Plantar responses are flexor. Coordination reveals intact [id number]. Gait was not tested. LABORATORY DATA. Hematology: White blood cell count 7.3, hemoglobin 11.9, hematocrit 36.1, MCV 94.4, platelet count 94,000. Urinalysis; 1+ protein, trace blood. Chemistry: Sodium 132, potassium 4.8, chloride 100, carbon dioxide 21, [place] [address] CONSULTATION Name: INNA HIRSCHIA Ariana Room: [address] M.RMikhail#: [id number] Admission: 09/27/20 Attend Phys: Bowen Reyes Discharge: Date of : 54 Report #: [id number] BUN 23, creatinine 1.2, GFR 45, glucose 190, calcium 9, total bilirubin 0.4, AST 13, ALT 15, alkaline phosphatase 175. IMAGING: CT of the head shows old infarcts in the left posterior parietal lobe and high right frontoparietal lobes. IMPRESSION: The patient most likely had a seizure. I spoke to her and he explained the event to me. 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 I recommend that the dose of zonisamide be increased to 200 mg a day. Her prescription will need to be changed to reflect the increase in dose. She will not be able to drive for six months but her tells me that she no longer drives. He does not trust her reaction time. Cardiology is seeing the patient, she does have a pacemaker, so we will see what their recommendations are as well. MY DISCUSSION WITH THE : I spoke to the patient's . He tells me she was geting ready to do her breathing treatment. She didn't make any noise. She began to shake as she got into bed. He remembers her body shaking. He thought she was trying to hold her legs up against the gun cabinet as she was getting into bed. The shaking itself lasted three or four minutes. Her eyes were really, really big. They were "big like half dollars." He got her onto the floor beside the bed and she was out of it for five or six minutes. She did not bite her tongue or lose control of her bladder. By the time they put her in the ambulance she was coming around. During the event, her false teeth became displaced. This event was similar to the seizure she had two or three years ago except she didn't make a sound this time so he wasn't sure if it was a seizure. <ELECTRONICALLY SIGNED> By: Tyesha Alonso DO 09/28/20 1045 0910 0929Tyesha Alonso DO /nt
--- NOTE | 2020-09-28 12:28 | EKG ---
[place] [address] ELECTROCARDIOGRAM REPORT Name: MAULIK HIRSCH Room: [address]#: [id number] Admission: 09/27/20 Attend Phys: Robe Agrawal Discharge: Date of : 54 Date of Service: 09/27/20 1424 Report #: [id number] THIS REPORT FOR: //name// [facility] ED Test Date: 2020-09-27 Test Time: 14:24:40 Pat Name: MAULIK HIRSCH Department: Room: [facility] Gender: F Mobile Home Lot Utility Worker: SHAVONNE : 1950 Requested By: Marco Arrington Order Number: [id number] MD: Derik Buchanan Measurements Intervals [place] Rate: 70 P: 48 NM: 209 QRS: 47 QRSD: 93 T: 70 QT: 442 QTc: 477 Interpretive Statements Sinus rhythm Borderline ST elevation, anterolateral leads Borderline prolonged QT interval Baseline wander in lead(s) V5 Compared to ECG 08/23/2020 19:05:09 ST (T wave) deviation now present Myocardial infarct finding no longer present Electronically Signed On 09-28-2020 12:27:53 CDT by Derik Buchanan [email or web address] <ELECTRONICALLY SIGNED> By: Ruddy Buchanan MD, [facility] 09/28/20 1227 1424 1424 Ruddy Buchanan MD, [facility] /EPI
[2020-09-29 03:52] LABS: HEMATOCRIT 35.2 % (37.0-47.0); HEMOGLOBIN 11.4 gm/dL (12.0-15.0); MCH 30.6 pg (26.0-34.0); MCHC 32.4 g/dL (28.0-37.0); MCV 94.5 fL (80.0-100.0); MPV 12.2 fl. (7.2-11.1); NUCLEATED RBCS 0 /100WBC; PLATELET COUNT* 118 thou/uL (150-400); RBC 3.73 mil/uL (4.20-5.00); RDW-CV 15.1 % (10.5-14.5); WBC 13.7 thou/uL (4.0-11.0)
[2020-09-29 04:06] LABS: ALBUMIN 3.2 g/dL (3.4-5.0); CALCIUM 8.7 mg/dL (8.5-10.1); CREATININE 1.3 mg/dL (0.6-1.3); TOTAL BILIRUBIN 0.2 mg/dL (<0.1-1.0); TOTAL PROTEIN 6.6 g/dL (6.4-8.2)
[2020-09-29 05:07] LABS: ABSOLUTE LYMPHOCYTES 1.8 thou/uL (0.8-5.3); ABSOLUTE MONOCYTES 0.1 thou/uL (0.0-1.2); ABSOLUTE NEUTROPHILS 11.8 thou/uL (1.6-8.1); PLATELET ESTIMATE ADEQUATE
[2020-09-29 05:11] VITALS: BP 164/61
[2020-09-29 07:57] VITALS: BP 140/59
[2020-09-29] MEDS ORDERED: Nicoderm 21MG/24HR P TRANSDERM (09:06)
[2020-09-29] MEDS ORDERED: PREDNISONE 10 M10 MG PO (09:06)
[2020-09-29] MEDS ORDERED: AZITHROMYCIN 2250 MG PO (09:06)
[2020-09-29] MEDS ORDERED: BROVANA15 MCG/2 M INH (09:36)
[2020-09-29 11:30] VITALS: BP 140/59
--- NOTE | 2020-09-29 14:19 | 2DMMODE ---
[place] [address] 2 D/M-MODE ECHOCARDIOGRAM Name: RAYMON HIRSCHT[address] Lane Room: [address] Casey Arambula#: [id number] Admission: 09/27/20 Attend Phys: Robe Agrawal Discharge: 09/29/20 Date of : 54 Date of Service: 09/29/20 1419 Report #: [id number] THIS REPORT FOR: cc: Kel Iglesias MD,Kel Lopez,Donald Taylor MD [facility] ~ APPROVED REPORT Study performed: 09/29/2020 10:26:50 EXAM: Comprehensive 2D, Doppler, and color-flow Echocardiogram Patient Location: In-Patient Room #: [facility] Status: routine BSA: 1.71 HR: 78 bpm BP: 140/59 mmHg Rhythm: NSR Other Information Study Quality: Good Indications Dyspnea 2D Dimensions IVSd: 10.75 (7-11mm) LVOT Diam: 20.19 (18-24mm) LVDd: 48.37 mm PWd: 8.49 (7-11mm) Ascending Ao: 30.70 (22-36mm) LVDs: 32.84 (25-40mm) Aortic Root: 28.09 mm Volumes Left Atrial Volume (Systole) LA ESV Index: 40.30 mL/m2 Aortic Valve AoV Peak Robbin.: 2.05 m/s AO Peak Gr.: 16.86 mmHg LVOT Max P.83 mmHg AO Mean Gr.: 9.75 mmHg LVOT Mean P.51 mmHg LVOT Max V: 1.21 m/s AO V2 VTI: 45.17 cm LVOT Mean V: 0.72 m/s MICHAEL (VTI): 1.68 cm2 LVOT V1 VTI: 23.69 cm AI [place]: 3.67 m/s2 [place] [address] 2 D/M-MODE ECHOCARDIOGRAM Name: MAULIK HIRSCH Room: [address] Casey Arambula#: [id number] Admission: 09/27/20 Attend Phys: Robe Agrawal Discharge: 09/29/20 Date of : 54 Date of Service: 09/29/20 1419 Report #: [id number] PHT: 337.04 ms Mitral Valve E/A Ratio: 1.22 MV Decel. Time: 182.33 ms MV E Max Robbin.: 1.23 m/s MV PHT: 52.88 ms MVA (PHT): 4.16 cm2 TDI E/Lateral E': 15.38 E/Medial E': 17.57 Medial E' Robbin.: 0.07 m/s Lateral E' Robbin.: 0.08 m/s Pulmonary Valve PV Peak Robbin.: 1.10 m/s PV Peak Gr.: 4.81 mmHg Tricuspid Valve RAP Estimate: 5.00 mmHg TR Peak Gr.: 30.16 mmHg RVSP: 35.00 mmHg PA Pressure: 35.00 mmHg Left Ventricle The left ventricle is normal size. There is normal LV segmental wall motion. There is normal left ventricular wall thickness. Left ventricular systolic function is normal. The left ventricular ejection fraction is within the normal range. LVEF is 55-60%. The left ventricular diastolic function is normal. Right Ventricle The right ventricle is normal size. The right ventricular systolic function is normal. Pacemaker lead is present in the right ventricle. Atria Left atrium is mildly dilated. The right atrium size is normal. Aortic Valve Mild aortic valve sclerosis. Mild aortic regurgitation. Mild aortic stenosis. Mitral Valve The mitral valve is normal in structure. Mild mitral regurgitation. No evidence of mitral valve stenosis[place] [address] 2 D/M-MODE ECHOCARDIOGRAM Name: MAULIK HIRSCH Room: [address] Tyesha#: [id number] Admission: 09/27/20 Attend Phys: Robe Agrawal Discharge: 09/29/20 Date of : 54 Date of Service: 09/29/20 1419 Report #: [id number] The tricuspid valve is normal in structure. Mild tricuspid regurgitation. Mild pulmonary hypertension. Pulmonic Valve The pulmonary valve is normal in structure. There is no pulmonic valvular regurgitation. Great Vessels The aortic root is normal in size. IVC is normal in size and collapses >50% with inspiration. Pericardium There is no pericardial effusion. <Conclusion> The left ventricle is normal size. There is normal left ventricular wall thickness. Left ventricular systolic function is normal. The left ventricular ejection fraction is within the normal range. LVEF is 55-60%. The left ventricular diastolic function is normal. The right ventricle is normal size. Left atrium is mildly dilated. The right atrium size is normal. Mild aortic valve sclerosis. Mild aortic regurgitation. Mild aortic stenosis. The mitral valve is normal in structure. Mild mitral regurgitation. The tricuspid valve is normal in structure. Mild tricuspid regurgitation. Mild pulmonary hypertension. IVC is normal in size and collapses >50% with inspiration. There is no pericardial effusion. There is normal LV segmental wall motion. Pacemaker lead is present in the right ventricle. <ELECTRONICALLY SIGNED> By: Donald Lopez MD, FACC 09/29/20 1419 1419 1419 Donald Lopez MD, FACC /INF
--- NOTE | 2020-09-29 14:39 | EKG ---
[place] [address] ELECTROCARDIOGRAM REPORT Name: MAULIK HIRSCH Room: [address]#: [id number] Admission: 09/27/20 Attend Phys: Robe Agrawal Discharge: 09/29/20 Date of : 54 Date of Service: 09/27/201957 Report #: [id number] THIS REPORT FOR: //name// [facility] Test Date: 2020-09-27 Test Time: 19:58:33 Pat Name: MAULIK HIRSCH Department: Room: [address] Gender: F Event Planning Intern: TR : 1950 Requested By: Robe Agrawal Order Number: [id number] MD: Donald Lopez Measurements Intervals [place] Rate: 70 P: 59 SD: 206 QRS: 63 QRSD: 96 T: 88 QT: 413 QTc: 446 Interpretive Statements Sinus rhythm Compared to ECG 09/27/2020 14:24:40 ST (T wave) deviation no longer present Electronically Signed On 09-29-2020 14:38:56 CDT by Donald Lopez [email or web address] <ELECTRONICALLY SIGNED> By: Donald Lopez MD, FAC 09/29/20 1438 57 57 Donald Lopez MD, [facility] /EPI
== END 2020-09-29 13:00 | disposition home or self-care (01) ==
LOC: M.ERS 14:14 → M.TBA-ER 15:55 → M.2W 16:44
PROVIDERS: Emergency Medicine; ADMIT Internal Medicine; ATTEND Internal Medicine
DX: R55 Syncope and collapse (principal); Z20.822 Contact with and (suspected) exposure to COVID-19; F41.9 Anxiety disorder, unspecified; J44.1 Chronic obstructive pulmonary disease with (acute) exacerbation; R77.8 Other specified abnormalities of plasma proteins; E87.1 Hypo-osmolality and hyponatremia; E87.6 Hypokalemia; J18.9 Pneumonia, unspecified organism; G40.909 Epilepsy, unspecified, not intractable, without status epilepticus; R00.0 Tachycardia, unspecified; E86.0 Dehydration; I50.9 Heart failure, unspecified; I11.0 Hypertensive heart disease with heart failure; I42.9 Cardiomyopathy, unspecified; M54.9 Dorsalgia, unspecified; G89.29 Other chronic pain; D69.6 Thrombocytopenia, unspecified; I48.91 Unspecified atrial fibrillation; Z87.440 Personal history of urinary (tract) infections; Z85.118 Personal history of other malignant neoplasm of bronchus and lung; Z86.73 Personal history of transient ischemic attack (TIA), and cerebral infarction without residual deficits; Z90.49 Acquired absence of other specified parts of digestive tract; Z87.891 Personal history of nicotine dependence; Z90.710 Acquired absence of both cervix and uterus; Z98.890 Other specified postprocedural states; Z95.0 Presence of cardiac pacemaker

== ENCOUNTER → 2020-10-02 | Outpatient (CLI) | payer OTHER ==
[~2020-10-02] MED LIST changes: +AZITHROMYCIN 2250 MG PO; +Nicoderm 21MG/24HR P TRANSDERM
[2020-10-02 15:00] LABS: CREATININE 1.2 mg/dL (0.6-1.3)
== END ==
LOC: M.LAB 14:28
PROVIDERS: ATTEND Internal Medicine Critical Care Medicine
DX: M25.522 Pain in left elbow (principal); M25.422 Effusion, left elbow; M25.50 Pain in unspecified joint

== ENCOUNTER → 2020-10-17 | Outpatient (CLI) | payer OTHER ==
[2020-10-17 12:09] LABS: CREATININE 1.1 mg/dL (0.6-1.3)
== END ==
LOC: M.LAB 10:33 → M.CT 11:30
PROVIDERS: ATTEND Internal Medicine Critical Care Medicine
DX: C34.90 Malignant neoplasm of unspecified part of unspecified bronchus or lung (principal); R79.89 Other specified abnormal findings of blood chemistry

== ENCOUNTER → 2021-03-26 | Outpatient (CLI) | payer OTHER ==
[~2021-03-26] MED LIST changes: -NORVASC 2.5 MG2.5 M1 PO; +NORVASC5 MG PO; +PROAIR DIGIHAL90 MCG INH; +PROTONIX40 M4 PO; +ROPINIROLE HCL3 MG PO; -SERTRALINE HCL100 MG PO; +TRELEGY ELLIPT1 EACH INH; +ZOLOFT 50 MG TA50 MG PO
== END ==
LOC: M.PC 11:40
PROVIDERS: ATTEND Anesthesiology Pain Medicine
DX: G89.29 Other chronic pain (principal); J44.9 Chronic obstructive pulmonary disease, unspecified; J18.8 Other pneumonia, unspecified organism; I50.9 Heart failure, unspecified; I42.9 Cardiomyopathy, unspecified; I35.1 Nonrheumatic aortic (valve) insufficiency; L03.116 Cellulitis of left lower limb; L03.115 Cellulitis of right lower limb; K21.9 Gastro-esophageal reflux disease without esophagitis; R56.9 Unspecified convulsions; R00.0 Tachycardia, unspecified; Z95.0 Presence of cardiac pacemaker; Z86.73 Personal history of transient ischemic attack (TIA), and cerebral infarction without residual deficits; Z90.49 Acquired absence of other specified parts of digestive tract; Z90.710 Acquired absence of both cervix and uterus; Z88.6 Allergy status to analgesic agent; Z88.8 Allergy status to other drugs, medicaments and biological substances; Z79.899 Other long term (current) drug therapy

== ENCOUNTER → 2021-04-23 | Outpatient (CLI) | payer OTHER | LOC: M.PC 11:00 | PROVIDERS: ATTEND Anesthesiology Pain Medicine | DX: M54.50 Low back pain, unspecified (principal); J44.9 Chronic obstructive pulmonary disease, unspecified; I50.9 Heart failure, unspecified; I42.9 Cardiomyopathy, unspecified; I35.1 Nonrheumatic aortic (valve) insufficiency; L03.116 Cellulitis of left lower limb; L03.115 Cellulitis of right lower limb; M25.511 Pain in right shoulder; K21.9 Gastro-esophageal reflux disease without esophagitis; Z96.612 Presence of left artificial shoulder joint; Z95.0 Presence of cardiac pacemaker; Z90.49 Acquired absence of other specified parts of digestive tract; Z90.710 Acquired absence of both cervix and uterus; Z88.6 Allergy status to analgesic agent; Z88.8 Allergy status to other drugs, medicaments and biological substances; Z79.899 Other long term (current) drug therapy ==

== ENCOUNTER 2021-05-16 01:29 | Inpatient (IN) | payer OTHER ==
[~2021-05-16] VITALS: Ht 162.6 cm; Wt 67.1 kg
[2021-05-16] VITALS (8 sets, daily range): BP systolic 131–174; BP diastolic 42–79
[2021-05-16 02:00] LABS: ABSOLUTE BASOPHILS 0.1 thou/uL (0.0-0.2); ABSOLUTE LYMPHOCYTES 2.3 thou/uL (0.8-5.3); ABSOLUTE MONOCYTES 0.7 thou/uL (0.0-1.2); ABSOLUTE NEUTROPHILS 11.4 thou/uL (1.6-8.1); BASOPHILS 0.6 %; HEMATOCRIT 43.4 % (37.0-47.0); HEMOGLOBIN 14.2 gm/dL (12.0-15.0); LYMPHOCYTES 15.8 %; MCHC 32.6 g/dL (28.0-37.0); MONOCYTES 4.9 %; MPV 10.6 fl. (7.2-11.1); NUCLEATED RBCS 0 /100WBC; PLATELET COUNT* 231 thou/uL (150-400); POLYS 78.7 %; RBC 4.57 mil/uL (4.20-5.00); RDW-CV 14.6 % (10.5-14.5); WBC 14.5 thou/uL (4.0-11.0)
[2021-05-16 02:17] LABS: CALCIUM 9.2 mg/dL (8.5-10.1); CREATININE 1.6 mg/dL (0.6-1.3); POTASSIUM 5.1 mmol/L (3.5-5.1)
[2021-05-16 02:18] LABS: INFLUENZA A ANTIGEN Negative (Negative); INFLUENZA B ANTIGEN Negative (Negative)
[2021-05-16 02:28] LABS: ALBUMIN 3.4 g/dL (3.4-5.0); TOTAL BILIRUBIN 0.5 mg/dL (<0.1-1.0); TOTAL PROTEIN 7.6 g/dL (6.4-8.2)
[2021-05-16 02:51] LABS: BE -5.1 mmol/L (-2 to +3); PCO2 41.3 mmHg (35.0-45.0); PO2 91.9 mmHg (75.0-100.0); pH 7.318 (7.340-7.450)
--- NOTE | 2021-05-16 15:21 | EKG ---
[place] [address] ELECTROCARDIOGRAM REPORT Name: MAULIK HIRSCH Room: [place] [address] ADM IN ..#: [id number] Admission: 05/16/21 Attend Phys: Hodan Osorio, Discharge: Date of : 54 Date of Service: 05/16/21 0128 Report #: [id number] THIS REPORT FOR: //name// [facility] ED Test Date: 2021-05-16 Test Time: 01:28:24 Pat Name: MAULIK HIRSCH Department: Room: [facility] Gender: F Glass Melt Operator: MARLENE : 1950 Requested By: Sybil Moe Order Number: [id number] MD: Jorge Mcclelland Measurements Intervals [place] Rate: 137 P: -45 [place]: 149 QRS: -18 QRSD: 188 T: 111 QT: 389 QTc: 588 Interpretive Statements Wide-complex tachycardia Baseline wander in lead(s) V2 Compared to ECG 09/27/2020 19:58:33 Wide-complex tachycardia now present Electronically Signed On 05-16-2021 15:21:37 MACHINE RECORDS UNITS SUPERVISOR by Jorge Mcclelland [email or web address] <ELECTRONICALLY SIGNED> By: Jorge Mcclelland MD, FACC 05/16/21 1521 0128 0128 Jorge Mcclelland MD, FACC /EPI
--- NOTE | 2021-05-16 15:24 | EKG ---
[place] [address] ELECTROCARDIOGRAM REPORT Name: MAULIK HIRSCH Room: [place] [address] ADM IN ..#: [id number] Admission: 05/16/21 Attend Phys: Hodan Osorio, Discharge: Date of : 54 Date of Service: 05/16/21 0545 Report #: [id number] THIS REPORT FOR: //name// [facility] ED Test Date: 2021-05-16 Test Time: 05:45:51 Pat Name: MAULIK HIRSCH Department: Room: [place] [address] Gender: F Regional Sales Manager: MARLENE : 1950 Requested By: Sybil Moe Order Number: [id number] MD: Jorge Mcclelland Measurements Intervals [place] Rate: 88 P: 37 VT: 210 QRS: 44 QRSD: 102 T: 87 QT: 408 QTc: 494 Interpretive Statements Sinus rhythm Borderline prolonged QT interval Compared to ECG 05/16/2021 01:32:04 Left bundle-branch block no longer present Electronically Signed On 05-16-2021 15:24:32 MANAGEMENT AIDE by Jorge Mcclelland [email or web address] <ELECTRONICALLY SIGNED> By: Jorge Mcclelland MD, FAC 05/16/21 1524 0545 0545 Jorge Mcclelland MD, FAC /EPI
[2021-05-16 17:14] LABS: URINE BILIRUBIN NEGATIVE (Negative); URINE BLOOD NEGATIVE (Negative); URINE CLARITY CLEAR; URINE COLOR YELLOW; URINE GLUCOSE-RANDOM NEGATIVE (Negative); URINE KETONES TRACE (Negative); URINE LEUKOCYTES-REFLEX NEGATIVE (Negative); URINE NITRITE-REFLEX NEGATIVE (Negative); URINE PROTEIN NEGATIVE (Negative); URINE SPECIFIC GRAVITY 1.025 (1.005-1.030); URINE UROBILINOGEN 0.2 E.U./dl (0.2-1.0)
[2021-05-16 17:29] LABS: AMP/METHAMP Negative (Negative); BARBITURATES Negative (Negative); BENZODIAZEPINES Negative (Negative); COCAINE Negative (Negative); METHADONE Negative (Negative); OPIATES POSITIVE (Negative); PCP Negative (Negative); THC Negative (Negative)
[2021-05-16] MEDS ORDERED: VIMPAT100 MG PO ×3 (22:42→23:13)
[2021-05-17 04:00] VITALS: BP 184/88
[2021-05-17 05:36] LABS: GLYCOHEMOGLOBIN (HGB A1C) 6.2 % (4.8-5.6)
[2021-05-17 08:10] VITALS: BP 183/79
[2021-05-17 11:35] LABS: CREATININE 1.2 mg/dL (0.6-1.3); POTASSIUM 4.2 mmol/L (3.5-5.1)
[2021-05-17 12:42] VITALS: BP 163/62
[2021-05-17 12:44] LABS: HEMATOCRIT 36.1 % (37.0-47.0); MCH 30.1 pg (26.0-34.0); MPV 11.9 fl. (7.2-11.1); NUCLEATED RBCS 0 /100WBC; RBC 3.84 mil/uL (4.20-5.00); RDW-CV 14.3 % (10.5-14.5); WBC 15.2 thou/uL (4.0-11.0)
[2021-05-17 12:57] LABS: HEMOGLOBIN 11.5 gm/dL (12.0-15.0); PLATELET COUNT* 62 thou/uL (150-400)
[2021-05-17 13:39] LABS: ABSOLUTE LYMPHOCYTES 0.6 thou/uL (0.8-5.3); ABSOLUTE MONOCYTES 0.9 thou/uL (0.0-1.2); ABSOLUTE NEUTROPHILS 13.7 thou/uL (1.6-8.1)
[2021-05-17 13:40] LABS: CLUMPED PLTS FEW; PLATELET ESTIMATE ADEQUATE
[2021-05-17 17:00] VITALS: BP 140/58
[2021-05-17 19:47] VITALS: BP 171/74
[2021-05-18] VITALS: BP 187/78
[2021-05-18 04:00] VITALS: BP 170/77
[2021-05-18 05:36] LABS: ABSOLUTE LYMPHOCYTES 0.8 thou/uL (0.8-5.3); ABSOLUTE MONOCYTES 0.5 thou/uL (0.0-1.2); ABSOLUTE NEUTROPHILS 12.5 thou/uL (1.6-8.1); BASOPHILS 0.2 %; HEMATOCRIT 36.5 % (37.0-47.0); HEMOGLOBIN 11.6 gm/dL (12.0-15.0); LYMPHOCYTES 6.1 %; MCH 30.1 pg (26.0-34.0); MCHC 31.7 g/dL (28.0-37.0); MCV 94.8 fL (80.0-100.0); MONOCYTES 3.7 %; MPV 12.1 fl. (7.2-11.1); NUCLEATED RBCS 0 /100WBC; RBC 3.85 mil/uL (4.20-5.00); RDW-CV 14.7 % (10.5-14.5); WBC 13.9 thou/uL (4.0-11.0)
[2021-05-18 06:03] LABS: PLATELET COUNT* 142 thou/uL (150-400)
[2021-05-18 06:08] LABS: ALBUMIN 2.9 g/dL (3.4-5.0); CALCIUM 8.9 mg/dL (8.5-10.1); CREATININE 1.4 mg/dL (0.6-1.3); POTASSIUM 4.4 mmol/L (3.5-5.1); TOTAL BILIRUBIN 0.5 mg/dL (<0.1-1.0); TOTAL PROTEIN 6.2 g/dL (6.4-8.2)
[2021-05-18 08:10] VITALS: BP 168/74
--- NOTE | 2021-05-18 08:12 | CON ---
[address] [address] CONSULTATION Name: MAULIK HIRSCH Ariana Room: [address] IN M.R.#: [id number] Admission: 05/16/21 Attend Phys: Hodan Osorio MD Discharge: Date of : 54 Report #: [id number] THIS REPORT FOR: cc: Ayan Priest MD, Dirk R. MD Liston, Michael J. MD FAC ~ cc: Floyd Thomas MD FAC, Ayan Priest MD DATE OF CONSULTATION: 05/17/2021 CARDIOLOGY CONSULT INDICATION: Tachycardia and respiratory failure. HISTORY OF PRESENT ILLNESS: The patient is a 71-year-old white female with a long history of COPD. She had an episode yesterday of acute shortness of breath. She presented to the Emergency Room in respiratory distress. The patient was cyanotic. The patient was stabilized in the Emergency Room with supplemental oxygen. At present, she is doing much better. Chest x-ray is suggestive possibly of left-sided pneumonia. She has a history of long QT syndrome, status post ICD placement for primary prevention. In the Emergency Room yesterday, she appeared to be in a wide complex tachycardia that appeared to be sinus. Presently, her rhythm is stable. Interrogation of her device is pending. There is no history of coronary artery disease. Previous catheterization had shown no significant coronary artery disease. She has a history of paroxysmal atrial fibrillation without recent recurrence. In this setting, her troponin is mildly elevated, likely due to respiratory failure and hypoxia. She is not having any symptoms to suggest unstable angina. PAST MEDICAL HISTORY: 1. Paroxysmal atrial fibrillation remotely. 2. Long QT syndrome. 3. ICD in place for primary prevention. 4. COPD. 5. History of cardiomyopathy with normal EF on most recent echocardiogram. 6. Aortic valvular insufficiency. 7. [place], 2009. 8. Lung cancer, status post gamma knife treatment. 9. History of CVA. 10. [place] [address] CONSULTATION Name: MAULIK HIRSCH Room: [address]#: [id number] Admission: 05/16/21 Attend Phys: Hodan Osorio MD Discharge: Date of : 54 Report #: [id number] 11. Laminectomy x 5. 12. Tonsillectomy. 13. . 14. Cholecystectomy. 15. Left shoulder surgery. 16. Appendectomy. 17. Hysterectomy. 18. GERD. FAMILY HISTORY: Noncontributory. SOCIAL HISTORY: The patient is a daily smoker. She does not drink alcohol. PHYSICAL EXAMINATION: VITAL SIGNS: Stable. Blood pressure 163/62, pulse is 75 and regular. GENERAL: This is a pleasant lady in no distress. Mood and affect appropriate. HEENT: Extraocular muscles intact. Mucous membranes are moist. NECK: Shows no jugular venous distention. CHEST: Reveals diminished breath sounds throughout. CARDIAC: Reveals a regular rhythm. I do not appreciate gallop or murmur. ABDOMEN: Reveals normal bowel sounds. EXTREMITIES: Show trace edema. SKIN: Warm and dry. DIAGNOSTIC DATA: A 12-lead EKG presently shows sinus rhythm with no acute ST or T-wave abnormality. LABORATORY DATA: Reviewed. Sodium 135, potassium 4.2, chloride 101, bicarb 25, BUN 26, creatinine 1.2, serum glucose 107. AST 21, amylase 45, lipase 107, total bilirubin 0.5, calcium 9.0, phosphorus 2.7, magnesium 2.2, alkaline phosphatase 164, ALT 19, total protein 7.6, albumin 3.4, EGFR 45. Troponin high sensitivity 161. NT-proBNP 2642. Coags within normal limits. White blood cell count 15.2, hemoglobin 11.5, platelet count 62,000. Chest x-ray shows infiltrate in the left lung. IMPRESSION AND RECOMMENDATIONS: 1. Acute respiratory failure, likely due to chronic obstructive pulmonary disease and pneumonia. The patient is on IV antibiotics and receiving breathing treatments. 2. Paroxysmal atrial fibrillation. No recent recurrence at this time. We will follow clinically. The patient is not currently on anticoagulation, presumably due to fall risk. 3. History of cardiomyopathy with normalization of EF on most recent [facility] [address] [place] [address] CONSULTATION Name: MAULIK HIRSCH Room: [address] IN [facility]#: [id number] Admission: 05/16/21 Attend Phys: Hodan Osorio MD Discharge: Date of : 54 Report #: [id number] echocardiograms. Repeat echocardiogram at this time. 4. Hypertension. Blood pressure moderately elevated. Resume home medications and titrate as needed. 5. Tobacco use, cessation advised. 6. ICD in place. Plan interrogation tomorrow. <ELECTRONICALLY SIGNED> By: Jorge Mcclelland MD, FACC 05/18/21 0812 1239 1916Micalise Mclcelland MD, FACC /nt
[2021-05-18 11:47] VITALS: BP 177/73
[2021-05-18 16:49] VITALS: BP 166/70
[2021-05-18 20:00] VITALS: BP 177/72
[2021-05-19] VITALS (8 sets, daily range): BP systolic 114–238; BP diastolic 62–98
[2021-05-19] MEDS ORDERED: SOMA350 MG PO (08:01)
[2021-05-19] MEDS ORDERED: NEURONTIN100 MG PO (08:01)
[2021-05-19] MEDS ORDERED: NORCO 10-325 T1 EACH PO (08:01)
[2021-05-19 12:56] LABS: HEMATOCRIT 38.1 % (37.0-47.0); HEMOGLOBIN 12.5 gm/dL (12.0-15.0); MCH 30.5 pg (26.0-34.0); MCHC 32.7 g/dL (28.0-37.0); MCV 93.1 fL (80.0-100.0); MPV 12.3 fl. (7.2-11.1); NUCLEATED RBCS 0 /100WBC; PLATELET COUNT* 101 thou/uL (150-400); RDW-CV 14.4 % (10.5-14.5); WBC 11.9 thou/uL (4.0-11.0)
[2021-05-19 13:24] LABS: CALCIUM 8.8 mg/dL (8.5-10.1); CREATININE 1.2 mg/dL (0.6-1.3); POTASSIUM 3.6 mmol/L (3.5-5.1)
[2021-05-19 13:29] LABS: ABSOLUTE LYMPHOCYTES 0.5 thou/uL (0.8-5.3); ABSOLUTE MONOCYTES 0.8 thou/uL (0.0-1.2); ABSOLUTE NEUTROPHILS 10.6 thou/uL (1.6-8.1)
[2021-05-19 13:30] LABS: CLUMPED PLTS OCCASIONAL
[2021-05-20 01:03] VITALS: BP 116/82
[2021-05-20 05:26] VITALS: BP 189/61
[2021-05-20 08:15] VITALS: BP 117/78
--- NOTE | 2021-05-20 08:52 | EKG ---
[place] [address] ELECTROCARDIOGRAM REPORT Name: MAULIK HIRSCH Room: [address] ADM IN M.R.#: [id number] Admission: 05/16/21 Attend Phys: Hodan Osorio, Discharge: Date of : 54 Date of Service: 05/16/21 0132 Report #: [id number] THIS REPORT FOR: //name// [facility] ED Test Date: 2021-05-16 Test Time: 01:32:04 Pat Name: MAULIK HIRSCH Department: Room: [address] Gender: F Charge Account Identification Clerk: MARLENE : 1950 Requested By: Sybil Moe Order Number: [id number] MD: Floyd Thomas Measurements Intervals [place] Rate: 133 P: -76 AL: 42 QRS: -60 QRSD: 162 T: 105 QT: 385 QTc: 573 Interpretive Statements wide complex tachycardia Left bundle branch block Compared to ECG 05/16/2021 01:28:24 rate has slowed Electronically Signed On 05-20-2021 8:52:[address] LIGHT REPAIRER by Floyd Thomas [email or web address] <ELECTRONICALLY SIGNED> By: Floyd Thomas MD, [facility] 05/20/21 0852 1 1 Floyd Thomas MD, [facility] /EPI
[2021-05-20 09:33] LABS: HEMATOCRIT 41.6 % (37.0-47.0); HEMOGLOBIN 13.6 gm/dL (12.0-15.0); MCH 30.4 pg (26.0-34.0); MCHC 32.7 g/dL (28.0-37.0); MPV 10.4 fl. (7.2-11.1); RBC 4.48 mil/uL (4.20-5.00); WBC 9.2 thou/uL (4.0-11.0)
[2021-05-20] MEDS ORDERED: PREDNISONE 10 M10 MG PO (09:35)
[2021-05-20] MEDS ORDERED: DOXYCYCLINE 10100 M2 PO (09:35)
[2021-05-20 09:53] LABS: CALCIUM 9.1 mg/dL (8.5-10.1); CREATININE 1.1 mg/dL (0.6-1.3); POTASSIUM 3.8 mmol/L (3.5-5.1)
[2021-05-20] MEDS ORDERED: IPRAT-ALBUT 0.5-3 ML INH (09:59)
[2021-05-20] MEDS ORDERED: CARAFATE 11 GM/10 M1 PO (09:59)
[2021-05-20 12:00] VITALS: BP 175/63
[2021-05-20 16:00] VITALS: BP 169/62
[2021-05-20 17:12] VITALS: BP 169/62
[2021-05-21] MEDS ORDERED: NEURONTIN100 MG PO (12:39)
[2021-05-21] MEDS ORDERED: SOMA350 MG PO (12:39)
[2021-05-21] MEDS ORDERED: NORCO 10-325 T1 EACH PO ×2 (12:39→12:47)
== END 2021-05-20 17:45 | disposition home health service (06) | DRG 177 ==
LOC: M.ERS 01:29 → M.TBA-ER 04:02 → M.2W 04:02
PROVIDERS: Emergency Medicine; Internal Medicine; ADMIT Internal Medicine; ATTEND Internal Medicine
PROC: 4B02XSZ Measurement of Cardiac Pacemaker, External Approach (ICD-10-PCS; principal; 2021-05-18)
PROC: 05HC33Z Insertion of Infusion Device into Left Basilic Vein, Percutaneous Approach (ICD-10-PCS; 2021-05-19)
DX: J69.0 Pneumonitis due to inhalation of food and vomit (principal); G92.9 Unspecified toxic encephalopathy; J96.20 Acute and chronic respiratory failure, unspecified whether with hypoxia or hypercapnia; I42.9 Cardiomyopathy, unspecified; N17.9 Acute kidney failure, unspecified; Z20.822 Contact with and (suspected) exposure to COVID-19; J44.9 Chronic obstructive pulmonary disease, unspecified; I50.9 Heart failure, unspecified; K21.9 Gastro-esophageal reflux disease without esophagitis; I44.7 Left bundle-branch block, unspecified; I48.0 Paroxysmal atrial fibrillation; G40.909 Epilepsy, unspecified, not intractable, without status epilepticus; I11.0 Hypertensive heart disease with heart failure; T50.905A Adverse effect of unspecified drugs, medicaments and biological substances, initial encounter; F17.210 Nicotine dependence, cigarettes, uncomplicated; G89.29 Other chronic pain; M54.9 Dorsalgia, unspecified; E11.65 Type 2 diabetes mellitus with hyperglycemia; M19.90 Unspecified osteoarthritis, unspecified site; D69.6 Thrombocytopenia, unspecified; Z79.899 Other long term (current) drug therapy; Z95.0 Presence of cardiac pacemaker; Z85.118 Personal history of other malignant neoplasm of bronchus and lung; Z90.710 Acquired absence of both cervix and uterus; Z90.49 Acquired absence of other specified parts of digestive tract; Z86.73 Personal history of transient ischemic attack (TIA), and cerebral infarction without residual deficits; Z88.6 Allergy status to analgesic agent; Z88.2 Allergy status to sulfonamides; Z88.8 Allergy status to other drugs, medicaments and biological substances; Z71.6 Tobacco abuse counseling

== ENCOUNTER → 2021-05-21 | Outpatient (CLI) | payer OTHER ==
[~2021-05-21] MED LIST changes: +CARAFATE 11 GM/10 M1 PO; +DOXYCYCLINE 10100 M2 PO; +VIMPAT100 MG PO
== END ==
LOC: M.PC 11:00
PROVIDERS: ATTEND Anesthesiology Pain Medicine
DX: M54.50 Low back pain, unspecified (principal); I11.0 Hypertensive heart disease with heart failure; I50.9 Heart failure, unspecified; I42.9 Cardiomyopathy, unspecified; I35.1 Nonrheumatic aortic (valve) insufficiency; Z95.0 Presence of cardiac pacemaker; R56.9 Unspecified convulsions; L03.116 Cellulitis of left lower limb; L03.115 Cellulitis of right lower limb; K21.9 Gastro-esophageal reflux disease without esophagitis; J44.9 Chronic obstructive pulmonary disease, unspecified; Z96.612 Presence of left artificial shoulder joint; Z88.6 Allergy status to analgesic agent; Z88.8 Allergy status to other drugs, medicaments and biological substances; Z79.899 Other long term (current) drug therapy

== ENCOUNTER → 2021-06-18 | Outpatient (CLI) | payer OTHER | LOC: M.PC 10:50 | PROVIDERS: ATTEND Anesthesiology Pain Medicine | DX: M54.50 Low back pain, unspecified (principal); I50.9 Heart failure, unspecified; I42.9 Cardiomyopathy, unspecified; I35.1 Nonrheumatic aortic (valve) insufficiency; L03.116 Cellulitis of left lower limb; L03.115 Cellulitis of right lower limb; K21.9 Gastro-esophageal reflux disease without esophagitis; J44.9 Chronic obstructive pulmonary disease, unspecified; F17.200 Nicotine dependence, unspecified, uncomplicated; Z95.0 Presence of cardiac pacemaker; Z88.6 Allergy status to analgesic agent; Z88.8 Allergy status to other drugs, medicaments and biological substances; Z79.899 Other long term (current) drug therapy ==

== ENCOUNTER → 2021-07-16 | Outpatient (CLI) | payer OTHER | LOC: M.PC 08:36 | PROVIDERS: ATTEND Anesthesiology Pain Medicine | DX: G89.29 Other chronic pain (principal); M54.50 Low back pain, unspecified; M25.511 Pain in right shoulder; I50.9 Heart failure, unspecified; I42.9 Cardiomyopathy, unspecified; I35.1 Nonrheumatic aortic (valve) insufficiency; L03.116 Cellulitis of left lower limb; L03.115 Cellulitis of right lower limb; K21.9 Gastro-esophageal reflux disease without esophagitis; J44.9 Chronic obstructive pulmonary disease, unspecified; Z95.0 Presence of cardiac pacemaker; Z88.6 Allergy status to analgesic agent; Z88.8 Allergy status to other drugs, medicaments and biological substances; Z79.899 Other long term (current) drug therapy ==